=== PATIENT | female | born 1950 | race Caucasian/White ===

== ENCOUNTER 2018-02-07 16:59 | Inpatient (IN) | payer MEDICARE, OTHER ==
[2018-02-07] MEDS ORDERED: Sodium Chloride 0.9% 1,000 ML IV STA (17:21)
--- NOTE | 2018-02-07 17:24 | ED PDOC ---
HPI: Psych/Substance Abuse Time Seen by Provider: 02/07/18 17:15 Chief Complaint (Nursing): Psychiatric Evaluation Chief Complaint (Provider): Psychiatric Evaluation History/Exam Limitations: no limitations Additional Complaint(s): Keke Mena is a 68 year old female with a past medical history of CVA, HTN, diabetes, and chronic kidney disease, who was referred to the emergency department by her [facility]. Patient states she has been experiencing abdominal pain associated with nausea and vomiting. Patient has shown signs of depression but has no suicidal or homicidal ideation. PMD: Thad Conn Past Medical History Reviewed: Historical Data, Nursing Documentation, Vital Signs Vital Signs: Last Vital Signs Temp 98.3 F 02/07/18 17:03 Pulse 104 H 02/07/18 17:03 Resp 16 02/07/18 17:03 BP 133/90 02/07/18 17:03 Pulse Ox 95 02/07/18 17:03 - Medical History PMH: CVA, Diabetes, HTN, Chronic Kidney Disease - Surgical History Surgical History: No Surg Hx - Family History Family History: States: Unknown Family Hx - Living Arrangements Living Arrangements: [facility] L[facility] - Home Medications Home Medications: Ambulatory Orders Medication Instructions Recorded ARIPiprazole [Abilify] 2 mg PO DAILY 02/07/18 Acetaminophen [Tylenol 325mg tab] 650 mg PO Q4 PRN 02/07/18 Acetaminophen [Tylenol 325mg tab] 650 mg PO Q4 PRN 02/07/18 Apixaban [Eliquis] 2.5 mg PO Q12 02/07/18 Atorvastatin [Lipitor] 80 mg PO HS 02/07/18 Canagliflozin [Invokana] 300 mg PO DAILY 02/07/18 Colchicine [Colcrys] 0.6 mg PO DAILY 02/07/18 Cyproheptadine [Periactin] 4 mg PO BID 02/07/18 Docusate [Colace] 300 mg PO HS 02/07/18 Famotidine [Pepcid] 20 mg PO Q12 02/07/18 Lactulose [Generlac] 30 ml PO HS 02/07/18 Megestrol [Megace] 10 ml PO BID 02/07/18 Metoprolol Succinate XL [Toprol XL] 25 mg PO Q12 02/07/18 Mirtazapine [Remeron] 15 mg PO HS 02/07/18 Polyethylene Glycol 3350 [Miralax] 17 gm PO Q48H PRN 02/07/18 Sertraline [Zoloft] 50 mg PO DAILY 02/07/18 amLODIPine [Norvasc] 5 mg PO Q12 02/07/18 hydrALAZINE [Apresoline] 25 mg PO Q12 02/07/18 - Allergies Allergies/Adverse Reactions: Allergies Allergy/AdvReac Type Severity Reaction Status Date / Time Penicillins Allergy RASH Verified 02/07/18 17:07 Review of Systems ROS Statement: Except As Marked, All Systems Reviewed And Found Negative Gastrointestinal: Positive for: Nausea, Vomiting, Abdominal Pain Psych: Positive for: Depression (showing symptoms of depression). Negative for: Suicidal ideation (homicidal ideation) Physical Exam - Reviewed Nursing Documentation Reviewed: Yes Vital Signs Reviewed: Yes - Physical Exam Appears: Positive for: Non-toxic, No Acute Distress Head Exam: Positive for: ATRAUMATIC, NORMOCEPHALIC Skin: Positive for: Normal Color, Warm, Dry Eye Exam: Positive for: Normal appearance, EOMI, PERRL Neck: Positive for: Normal, Painless ROM, Supple Cardiovascular/Chest: Positive for: Regular Rate, Rhythm. Negative for: Murmur Respiratory: Positive for: Normal Breath Sounds. Negative for: Respiratory Distress Gastrointestinal/Abdominal: Positive for: Tenderness (mild epigastric tenderness and RUQ tenderness) Back: Positive for: Normal Inspection. Negative for: L CVA Tenderness, R CVA Tenderness, Vertebral Tenderness Extremity: Positive for: Other (Left upper and lower extremity weakness ) Neurologic/Psych: Positive for: Alert, Oriented (x3). Negative for: Motor/Sensory Deficits - Laboratory Results Result Diagrams: 02/07/18 18:20 02/07/18 19:05 - ECG O2 Sat by Pulse Oximetry: 95 (RA) Pulse Ox Interpretation: Normal Medical Decision Making Medical Decision Making: Initial Time: 17:21 Initial Plan: --EKG --Alcohol Serum --CMP --Lipase --Drug screen, urine --ED urine dipstick --CBC with differential --Chest X-ray --Pepcid 20 mg IVP --Sodium Chloride 1,000 ml --Zofran Inj 4 mg IVP Time: 18:00 Chest X-ray FINDINGS: LUNGS: No active pulmonary disease. PLEURA: No significant pleural effusion identified, no pneumothorax apparent. CARDIOVASCULAR: No atherosclerotic calcification present Normal. OSSEOUS STRUCTURES: No significant abnormalities. VISUALIZED UPPER ABDOMEN: Normal. OTHER FINDINGS: None. IMPRESSION: No active disease. -- Scribe Attestation: Documented by Sergey Echols, acting as a scribe for Howard Samson MD Provider Scribe Attestation: All medical record entries made by the Scribe were at my direction and personally dictated by me. I have reviewed the chart and agree that the record accurately reflects my personal performance of the history, physical exam, medical decision making, and the department course for this patient. I have also personally directed, reviewed, and agree with the discharge instructions and disposition. Disposition - Clinical Impression Clinical Impression: Abdominal pain, CKD (chronic kidney disease) - Patient ED Disposition Is Patient to be Admitted: Yes - Disposition Disposition Time: 21:13 Condition: FAIR Forms: ClaimIt (Chinese) - Pt Status Changed To: Hospital Disposition Of: Observation - POA Present On Arrival: None
--- NOTE | 2018-02-07 18:06 | RAD ---
Date of service: 02/07/2018 HISTORY: Cough. COMPARISON: No prior. FINDINGS: LUNGS: No active pulmonary disease. PLEURA: No significant pleural effusion identified, no pneumothorax apparent. CARDIOVASCULAR: No atherosclerotic calcification present Normal. OSSEOUS STRUCTURES: No significant abnormalities. VISUALIZED UPPER ABDOMEN: Normal. OTHER FINDINGS: None. IMPRESSION: No active disease.
[2018-02-07 18:25] LABS: BASO # 0.1 K/uL (0.0-0.2); BASO % 1.3 % (0.0-2.0); EOS % 0.9 % (0.0-4.0); HEMOGLOBIN 14.4 g/dL (12.0-16.0); LYMPH # 2.3 K/uL (1.0-4.3); LYMPH % 47.7 % (20.0-40.0); MEAN CELL VOLUME 94.7 fl (81.0-99.0); MEAN CORPUSCULAR HEMOGLOBIN 31.2 pg (27.0-31.0); MEAN CORPUSCULAR HGB CONC 32.9 g/dL (33.0-37.0); MEAN PLATELET VOLUME 8.6 fl (7.2-11.7); MONO # 0.5 K/uL (0.0-0.8); MONO % 10.3 % (0.0-10.0); NEUT # 1.9 K/uL (1.8-7.0); NEUT % 39.8 % (50.0-75.0); NRBC % 0.3 % (0.0-0.0); RBC 4.61 Mil/uL (3.80-5.20); RED CELL DISTRIBUTION WIDTH 17.9 % (11.5-14.5); WHITE BLOOD COUNT 4.8 K/uL (4.8-10.8)
[2018-02-07 19:32] LABS: ALB/GLOB RATIO 0.9 (1.0-2.1); ALBUMIN 3.3 g/dL (3.5-5.0); CALCIUM 9.7 mg/dL (8.4-10.2)
[2018-02-08] MEDS: Sodium Chloride 0.9% 1,000 ML IV SCH ×4 (03:00→23:08)
[2018-02-08] MEDS ORDERED: POLYETHYLENE GLYCOL 3350 17 GM/Dose PACKET PO PRN (03:15)
[2018-02-08 06:48] LABS: INR 1.1; PROTHROMBIN TIME 12.4 Seconds (9.8-13.1)
[2018-02-08 06:49] LABS: PARTIAL THROMBOPLASTIN TIME 32.1 Seconds (25.6-37.1)
--- NOTE | 2018-02-08 07:13 | CARD ---
APPROVED REPORT Date of service: 02/07/2018 EKG Measurement Heart [id number] <Conclusion> Sinus tachycardia with premature atrial complexes Left axis deviation Left ventricular hypertrophy with repolarization abnormality Abnormal ECG
--- NOTE | 2018-02-08 08:24 | CP.PCM.HP ---
<Cyrus Farr - Last Filed: 02/08/18 11:44> History of Present Illness - History of Present Illness History of Present Illness: 68 year old female with a past medical history of CVA, HTN, diabetes, and chronic kidney disease, who was referred to the emergency department by her care home due to abdominal pain associated with nausea and vomiting x1 day. Patient has shown signs of depression but has no suicidal or homicidal ideation. Patient is nonverbal and poor coopeartive with exam. Patient looks comfortable in bed. PMD: Thad Thayer PMH: CVA, Diabetes, HTN, Chronic Kidney Disease PSH: none Meds: as bellow FMH: noncontributory Allergies: PCN SH: no alcohol, tobacco, drugs, live in care home Present on Admission - Present on Admission Any Indicators Present on Admission: No Review of Systems - Review of Systems All systems: reviewed and no additional remarkable complaints except (HPI) Past Patient History - Past Medical History & Family History Past Medical History?: Yes - Past Social History Smoking Status: Never Smoked - CARDIAC Hx Cardiac Disorders: Yes Hx Hypertension: Yes - PULMONARY Hx Respiratory Disorders: No - NEUROLOGICAL Hx Neurological Disorder: Yes HX Cerebrovascular Accident: Yes (left hemiphlegia) - HEENT Hx HEENT Problems: No - RENAL Hx Chronic Kidney Disease: Yes - ENDOCRINE/METABOLIC Hx Endocrine Disorders: Yes Hx Diabetes Mellitus Type 2: Yes - HEMATOLOGICAL/ONCOLOGICAL Hx Blood Disorders: No Hx AIDS: No Hx Human Immunodeficiency Virus (HIV): No - INTEGUMENTARY Hx Dermatological Problems: Yes Other/Comment: healed 2 left buttocks - MUSCULOSKELETAL/RHEUMATOLOGICAL Hx Musculoskeletal Disorders: Yes Hx Falls: Yes - GASTROINTESTINAL Hx Gastrointestinal Disorders: No - GENITOURINARY/GYNECOLOGICAL Hx Genitourinary Disorders: No - PSYCHIATRIC Hx Psychophysiologic Disorder: Yes Hx Depression: Yes Hx Substance Use: No - SURGICAL HISTORY Hx Surgeries: No - ANESTHESIA Hx Anesthesia: No Hx Anesthesia Reactions: No Hx Malignant Hyperthermia: No Has any member of the family had a problem w/ anesthesia?: No Meds Allergies/Adverse Reactions: Allergies Allergy/AdvReac Type Severity Reaction Status Date / Time Penicillins Allergy RASH Verified 02/07/18 17:07 Physical Exam - Constitutional Appears: No Acute Distress, Chronically Ill - Head Exam Head Exam: NORMAL INSPECTION - Eye Exam Eye Exam: EOMI - Respiratory Exam Respiratory Exam: Clear to Auscultation Bilateral - Cardiovascular Exam Cardiovascular Exam: REGULAR RHYTHM, +S1, +S2 - GI/Abdominal Exam GI & Abdominal Exam: Soft, Tenderness (diffuse). absent: Distended - Extremities Exam Extremities exam: Negative for: pedal edema - Neurological Exam Neurological exam: Alert, Oriented x3 - Psychiatric Exam Psychiatric exam: Flat Affect - Skin Skin Exam: Dry, Warm Results - Vital Signs Recent Vital Signs: Last Vital Signs Temp 97.6 F 02/08/18 08:03 Pulse 92 H 02/08/18 08:03 Resp 20 02/08/18 08:03 BP 126/91 H 02/08/18 08:03 Pulse Ox 99 02/08/18 08:03 - Labs Result Diagrams: 02/07/18 18:20 02/07/18 19:05 Labs: Laboratory Results - last 24 hr 02/07/18 02/07/18 02/07/18 18:20 18:42 19:05 WBC 4.8 RBC 4.61 Hgb 14.4 Hct 43.6 MCV 94.7 MCH 31.2 H MCHC 32.9 L RDW 17.9 H Plt Count 329 MPV 8.6 Neut % (Auto) 39.8 L Lymph % (Auto) 47.7 H [place] % (Auto) 10.3 H Eos % (Auto) 0.9 Baso % (Auto) 1.3 Neut # (Auto) 1.9 Lymph # (Auto) 2.3 [place] # (Auto) 0.5 Eos # (Auto) 0.0 Baso # (Auto) 0.1 PT INR APTT Sodium 138 Potassium 3.7 Chloride 105 Carbon Dioxide 19 L Anion Gap 18 BUN 64 H Creatinine 2.7 H Est GFR ( Amer) 21 Est GFR (Non-Af Amer) 18 POC Glucose (mg/dL) 190 H Random Glucose 202 H Calcium 9.7 Total Bilirubin 0.6 AST 42 H ALT 22 Alkaline Phosphatase 129 H Total Protein 6.9 Albumin 3.3 L Globulin 3.5 Albumin/Globulin Ratio 0.9 L Lipase 641 H 02/08/18 02/08/18 05:40 06:05 WBC RBC Hgb Hct MCV MCH MCHC RDW Plt Count MPV Neut % (Auto) Lymph % (Auto) [place] % (Auto) Eos % (Auto) Baso % (Auto) Neut # (Auto) Lymph # (Auto) [place] # (Auto) Eos # (Auto) Baso # (Auto) PT 12.4 INR 1.1 APTT 32.1 Sodium Potassium Chloride Carbon Dioxide Anion Gap BUN Creatinine Est GFR ( Amer) Est GFR (Non-Af Amer) POC Glucose (mg/dL) 138 H Random Glucose Calcium Total Bilirubin AST ALT Alkaline Phosphatase Total Protein Albumin Globulin Albumin/Globulin Ratio Lipase Assessment & Plan - Assessment and Plan (Free Text) Assessment: 68 year old female with a past medical history of CVA, HTN, diabetes, and chronic kidney disease due to abdominal pain and depression. Plan: - stable, denies chest pain - labs reviewed - CXR negative for lung disease - Abd Ct official report pending - f/u esophagus xr - GI consulted for PEG placement, appreciated input - continue home meds - Psych consulted, input appreciated - rest of plan as ordered case seen ans examined with Dr Conn <Thad Conn - Last Filed: 02/10/18 08:17> Results - Vital Signs Recent Vital Signs: Last Vital Signs Temp 97.7 F 02/09/18 16:00 Pulse 75 02/09/18 22:24 Resp 18 02/09/18 16:00 BP 132/74 02/09/18 22:24 Pulse Ox 96 02/09/18 16:00 - Labs Result Diagrams: 02/09/18 06:15 02/10/18 05:30 Labs: Laboratory Results - last 24 hr 02/09/18 02/09/18 02/09/18 11:02 15:58 20:42 Sodium Potassium Chloride Carbon Dioxide Anion Gap BUN Creatinine Est GFR ( Amer) Est GFR (Non-Af Amer) POC Glucose (mg/dL) 135 H 124 H Random Glucose Calcium Total Bilirubin AST ALT Alkaline Phosphatase Total Protein Albumin Globulin Albumin/Globulin Ratio Urine Color Yellow Urine Clarity Cloudy Urine pH 5.0 Ur Specific [place] 1.010 Urine Protein Negative Urine Glucose (UA) >=500 Urine Ketones Trace Urine Blood Small Urine Nitrate Negative Urine Bilirubin Negative Urine Urobilinogen 0.2-1.0 Ur Leukocyte Esterase Large Urine RBC (Auto) 13 H Urine Microscopic WBC 30 H Ur Squamous Epith Cells 2 Urine Bacteria Many H Urine Yeast (Budding) Few H 02/09/18 02/10/18 21:35 05:30 Sodium 141 Potassium 3.3 L Chloride 118 H Carbon Dioxide 14 L Anion Gap 12 BUN 35 H Creatinine 1.4 H Est GFR ( Amer) 46 Est GFR (Non-Af Amer) 38 POC Glucose (mg/dL) 166 H Random Glucose 99 Calcium 8.4 Total Bilirubin 0.5 AST 27 ALT 19 Alkaline Phosphatase 80 Total Protein 5.5 L Albumin 2.5 L D Globulin 3.0 Albumin/Globulin Ratio 0.8 L Urine Color Urine Clarity Urine pH Ur Specific [place] Urine Protein Urine Glucose (UA) Urine Ketones Urine Blood Urine Nitrate Urine Bilirubin Urine Urobilinogen Ur Leukocyte Esterase Urine RBC (Auto) Urine Microscopic WBC Ur Squamous Epith Cells Urine Bacteria Urine Yeast (Budding) Assessment & Plan - Assessment and Plan (Free Text) Assessment: Patient was personally seen and examined by me in rounds with residents. Available labs and diagnostic data reviewed. Case, Patient's condition and management plan discussed with residents in rounds. Agree with resident's progress note. Plan: As ordered.
[2018-02-08] MEDS: Megestrol Acetate 40 mg/ml Cup PO SCH ×2 (09:14→17:23)
[2018-02-08] MEDS: Metoprolol Succinate 25 mg XL Tab PO SCH ×3 (09:18→23:07)
[2018-02-08] MEDS ORDERED: Barium Sulfate Susp 0.1% w/v, 0.1% w/w 450 mL Bottle PO ONE (10:52)
--- NOTE | 2018-02-08 11:42 | CP.PCM.CON ---
<Florence Fonseca - Last Filed: 02/08/18 11:34> History of Present Illness - History of Present Illness History of Present Illness: GI Fellow PGY5 Consult Note This is a 68 year old female with a past medical history of CVA, HTN, diabetes, and chronic kidney disease, who was referred to the emergency department by her [facility] for poor appetite. Patient stated in the ER she has bee n experiencing abdominal pain associated with nausea and vomiting. Patient has shown signs of depression. No other records or further workup was sent from [place]. GI was consulted for PEG placement. ROS: A 12pt ROS was unable to be obtained. PMHx: As stated in HPI PsHx: Denies SHx: Denies FHx: Denies Past Patient History - Past Medical History & Family History Past Medical History?: Yes - Past Social History Smoking Status: Never Smoked - CARDIAC Hx Cardiac Disorders: Yes Hx Hypertension: Yes - PULMONARY Hx Respiratory Disorders: No - NEUROLOGICAL Hx Neurological Disorder: Yes HX Cerebrovascular Accident: Yes (left hemiphlegia) - HEENT Hx HEENT Problems: No - RENAL Hx Chronic Kidney Disease: Yes - ENDOCRINE/METABOLIC Hx Endocrine Disorders: Yes Hx Diabetes Mellitus Type 2: Yes - HEMATOLOGICAL/ONCOLOGICAL Hx Blood Disorders: No Hx AIDS: No Hx Human Immunodeficiency Virus (HIV): No - INTEGUMENTARY Hx Dermatological Problems: Yes Other/Comment: healed 2 left buttocks - MUSCULOSKELETAL/RHEUMATOLOGICAL Hx Musculoskeletal Disorders: Yes Hx Falls: Yes - GASTROINTESTINAL Hx Gastrointestinal Disorders: No - GENITOURINARY/GYNECOLOGICAL Hx Genitourinary Disorders: No - PSYCHIATRIC Hx Psychophysiologic Disorder: Yes Hx Depression: Yes Hx Substance Use: No - SURGICAL HISTORY Hx Surgeries: No - ANESTHESIA Hx Anesthesia: No Hx Anesthesia Reactions: No Hx Malignant Hyperthermia: No Has any member of the family had a problem w/ anesthesia?: No Meds Allergies/Adverse Reactions: Allergies Allergy/AdvReac Type Severity Reaction Status Date / Time Penicillins Allergy RASH Verified 02/07/18 17:07 - Medications Medications: Current Medications Acetaminophen (Tylenol 325mg Tab) 650 mg PO Q4 PRN PRN Reason: Temp >100 Acetaminophen (Tylenol 325mg Tab) 650 mg PO Q4 PRN PRN Reason: Pain, Mild (1-3) Amlodipine Besylate (Norvasc) 5 mg PO Q12 [facility] Last Admin: 02/08/18 09:17 Dose: 5 mg Aripiprazole (Abilify) 2 mg PO DAILY [facility] Last Admin: 02/08/18 09:13 Dose: Not Given Atorvastatin Calcium (Lipitor) 80 mg PO HS [facility] Colchicine (Colocrys) 0.6 mg PO DAILY [facility] Last Admin: 02/08/18 09:14 Dose: Not Given Cyproheptadine HCl (Periactin) 4 mg PO BID [facility] Last Admin: 02/08/18 09:14 Dose: Not Given Docusate Sodium (Colace) 300 mg PO HS [facility] Famotidine (Pepcid) 20 mg PO Q12 [facility] Last Admin: 02/08/18 09:14 Dose: Not Given Heparin Sodium (Porcine) (Heparin) 5,000 units SC Q8 [facility]; Protocol Last Admin: 02/08/18 09:11 Dose: 5,000 units Hydralazine HCl (Apresoline) 25 mg PO Q12 [facility] Last Admin: 02/08/18 09:13 Dose: Not Given Sodium Chloride (Sodium Chloride 0.9%) 1,000 mls @ 100 mls/hr IV .Q10H [facility] Stop: 02/13/18 03:10 Last Admin: 02/08/18 05:27 Dose: 100 mls/hr Megestrol Acetate (Megace) 400 mg PO BID [facility] Last Admin: 02/08/18 09:14 Dose: Not Given Metoprolol Succinate (Toprol Xl) 25 mg PO Q12 [facility] Last Admin: 02/08/18 09:18 Dose: 25 mg Mirtazapine (Remeron) 15 mg PO [facility] Polyethylene Glycol (Miralax) 17 gm PO Q48H PRN PRN Reason: Constipation Sertraline HCl (Zoloft) 50 mg PO DAILY [facility] Last Admin: 02/08/18 09:18 Dose: Not Given Physical Exam - Constitutional Appears: Non-toxic, No Acute Distress - Head Exam Head Exam: ATRAUMATIC, NORMAL INSPECTION, NORMOCEPHALIC - Eye Exam Eye Exam: EOMI, Normal appearance, PERRL Pupil Exam: PERRL - ENT Exam ENT Exam: Mucous Membranes Dry - Respiratory Exam Respiratory Exam: Clear to Auscultation Bilateral, NORMAL BREATHING PATTERN - Cardiovascular Exam Cardiovascular Exam: RRR, +S1, +S2 - GI/Abdominal Exam GI & Abdominal Exam: Normal Bowel Sounds, Soft. absent: Distended, Organomegaly, Tenderness - Extremities Exam Extremities exam: Positive for: normal inspection - Neurological Exam Neurological exam: Alert - Psychiatric Exam Psychiatric exam: Depressed - Skin Skin Exam: Dry, Intact, Normal Color, Warm Results - Vital Signs Recent Vital Signs: Last Vital Signs Temp 97.6 F 02/08/18 08:03 Pulse 92 H 02/08/18 09:18 Resp 20 02/08/18 08:03 BP 126/91 H 02/08/18 09:18 Pulse Ox 99 02/08/18 08:03 - Labs Result Diagrams: 02/07/18 18:20 02/07/18 19:05 Labs: Laboratory Results - last 24 hr 02/07/18 02/07/18 02/07/18 18:20 18:42 19:05 WBC 4.8 RBC 4.61 Hgb 14.4 Hct 43.6 MCV 94.7 MCH 31.2 H MCHC 32.9 L RDW 17.9 H Plt Count 329 MPV 8.6 Neut % (Auto) 39.8 L Lymph % (Auto) 47.7 H [place] % (Auto) 10.3 H Eos % (Auto) 0.9 Baso % (Auto) 1.3 Neut # (Auto) 1.9 Lymph # (Auto) 2.3 [place] # (Auto) 0.5 Eos # (Auto) 0.0 Baso # (Auto) 0.1 PT INR APTT Sodium 138 Potassium 3.7 Chloride 105 Carbon Dioxide 19 L Anion Gap 18 BUN 64 H Creatinine 2.7 H Est GFR ( Amer) 21 Est GFR (Non-Af Amer) 18 POC Glucose (mg/dL) 190 H Random Glucose 202 H Calcium 9.7 Total Bilirubin 0.6 AST 42 H ALT 22 Alkaline Phosphatase 129 H Total Protein 6.9 Albumin 3.3 L Globulin 3.5 Albumin/Globulin Ratio 0.9 L Lipase 641 H 02/08/18 02/08/18 05:40 06:05 WBC RBC Hgb Hct MCV MCH MCHC RDW Plt Count MPV Neut % (Auto) Lymph % (Auto) [place] % (Auto) Eos % (Auto) Baso % (Auto) Neut # (Auto) Lymph # (Auto) [place] # (Auto) Eos # (Auto) Baso # (Auto) PT 12.4 INR 1.1 APTT 32.1 Sodium Potassium Chloride Carbon Dioxide Anion Gap BUN Creatinine Est GFR ( Amer) Est GFR (Non-Af Amer) POC Glucose (mg/dL) 138 H Random Glucose Calcium Total Bilirubin AST ALT Alkaline Phosphatase Total Protein Albumin Globulin Albumin/Globulin Ratio Lipase Assessment & Plan - Assessment and Plan (Free Text) Assessment: 1. Poor Appetite 2. r/o Dysphagia 3. r/o Gallbladder pathology 4. Hx of CVA 5. Depression? Plan: -Continue supportive care with pain control and anti-emetics -CT imaging without contrast reviewed, concern for possible porcelain gallbladder -Will order Abd US, if +porcelain gallbladder will need surgical cholecystectomy -This may explain her abdominal pain and poor appetite -Unable to order MRI with contrast due to CrCl<30 -Monitor LFTs -Will order swallow evaluation -Order Barium esophagram to r/o any pathology prior to considering PEG -Pt looks depressed may benefit from psych evaluation -Will continue to follow <Keegan Zamudio - Last Filed: 02/15/18 09:08> Meds - Medications Medications: Current Medications Acetaminophen (Tylenol 325mg Tab) 650 mg PO Q4 PRN PRN Reason: Temp >100 Last Admin: 02/09/18 08:32 Dose: 650 mg Acetaminophen (Tylenol 325mg Tab) 650 mg PO Q4 PRN PRN Reason: Pain, Mild (1-3) Amlodipine Besylate (Norvasc) 5 mg PO Q12 [facility] Last Admin: 02/14/18 21:54 Dose: 5 mg Aripiprazole (Abilify) 5 mg PO DAILY [facility] Last Admin: 02/14/18 09:38 Dose: 5 mg Atorvastatin Calcium (Lipitor) 80 mg PO HS [facility] Last Admin: 02/14/18 21:53 Dose: 80 mg Bismuth Subsalicylate (Pepto-Bismol) 524 mg PO Q3H PRN PRN Reason: Diarrhea Last Admin: 02/13/18 21:38 Dose: 524 mg Colchicine (Colocrys) 0.6 mg PO DAILY [facility] Last Admin: 02/14/18 09:35 Dose: 0.6 mg Cyproheptadine HCl (Periactin) 4 mg PO BID [facility] Last Admin: 02/14/18 17:44 Dose: 4 mg Enalaprilat (Vasotec Iv) 1.25 mg IV Q6 PRN PRN Reason: Hypertension Last Admin: 02/12/18 22:11 Dose: 1.25 mg Heparin Sodium (Porcine) (Heparin) 5,000 units SC Q8 [facility]; Protocol Last Admin: 02/15/18 06:00 Dose: Not Given Hydralazine HCl (Apresoline) 25 mg PO Q12 [facility] Last Admin: 02/14/18 21:54 Dose: 25 mg Megestrol Acetate (Megace) 400 mg PO BID [facility] Last Admin: 02/14/18 17:44 Dose: 400 mg Metoprolol Succinate (Toprol Xl) 50 mg PO Q12 [facility] Last Admin: 02/14/18 22:21 Dose: 50 mg Mirtazapine (Remeron) 15 mg PO HS [facility] Last Admin: 02/14/18 21:55 Dose: 15 mg Ondansetron HCl (Zofran Inj) 4 mg IVP Q6 PRN PRN Reason: Nausea/Vomiting Last Admin: 02/15/18 06:04 Dose: 4 mg Pantoprazole Sodium (Protonix Inj) 40 mg IVP DAILY [facility] Last Admin: 02/14/18 09:42 Dose: 40 mg Potassium Chloride (Potassium Chloride Oral Soln) 40 meq PO DAILY [facility] Last Admin: 02/14/18 09:40 Dose: 40 meq Sertraline HCl (Zoloft) 50 mg PO DAILY [facility] Last Admin: 02/14/18 09:39 Dose: 50 mg Results - Vital Signs Recent Vital Signs: Last Vital Signs Temp 97.1 F L 02/15/18 08:30 Pulse 86 02/15/18 08:30 Resp 20 02/15/18 08:30 BP 110/75 02/15/18 08:30 Pulse Ox 99 02/15/18 08:30 - Labs Result Diagrams: 02/14/18 06:40 02/14/18 06:40 Labs: Laboratory Results - last 24 hr 02/14/18 02/14/18 02/14/18 11:03 15:53 21:11 POC Glucose (mg/dL) 242 H 304 H 259 H 02/15/18 06:01 POC Glucose (mg/dL) 270 H Assessment & Plan - Assessment and Plan (Free Text) Plan: Patient seen and examined Discussed with fellow and agree with above Keegan Zamudio MD, PhD
--- NOTE | 2018-02-08 12:23 | CT ---
Date of service: 02/07/2018 PROCEDURE: CT Abdomen and Pelvis without intravenous contrast HISTORY: r/o kidney stone COMPARISON: None. TECHNIQUE: Unenhanced. Neither IV nor oral contrast administered Radiation dose: Total exam DLP = 600.14 mGy-cm. This CT exam was performed using one or more of the following dose reduction techniques: Automated exposure control, adjustment of the mA and/or kV according to patient size, and/or use of iterative reconstruction technique. FINDINGS: LOWER THORAX: Unremarkable. LIVER: Unremarkable. No gross lesion or ductal dilatation. GALLBLADDER AND BILE DUCTS: Distended gallbladder. Sludge likely. Small gallstones. PANCREAS: Unremarkable. No gross lesion or ductal dilatation. SPLEEN: Unremarkable. ADRENALS: Unremarkable. No mass. KIDNEYS AND URETERS: Mildly atrophic kidneys bilaterally. Otherwise unremarkable. Unremarkable. No hydronephrosis. No solid mass. VASCULATURE: Atherosclerotic calcification and mural plaque present. Findings are seen throughout the aorta . No aortic aneurysm. BOWEL: Unremarkable. No obstruction. No gross mural thickening. APPENDIX: Unremarkable. Normal appendix. PERITONEUM: Unremarkable. No free fluid. No free air. LYMPH NODES: Unremarkable. No enlarged lymph nodes. BLADDER: Unremarkable. REPRODUCTIVE: Unremarkable. BONES: No acute fracture. OTHER FINDINGS: None. IMPRESSION: Distended gallbladder containing sludge and either small stones or a partially calcified gallbladder wall. Ultrasound correlation advised if clinically appropriate.. Additional benign and/or incidental findings described above. Concordant results (preliminary interpretation) provided by [employer]. Procedure Completed: 20:48. Preliminary Report: Dictated and Authenticated: 21:33. Final Interpretation: 12:19. February 08, 2018
--- NOTE | 2018-02-08 12:38 | CP.PCM.CON ---
History of Present Illness - History of Present Illness History of Present Illness: consult requested for depression pt is a 68 year old female with a past medical history of CVA, HTN, diabetes, and chronic kidney disease, who was referred to the emergency department by her [facility] assisted for poor appetite. as per record, pt has been experiencing abdominal pain associated with nausea and vomiting. GI was consulted for PEG placement. and abdominal x ray and ultra sound have been requested On evaluation, pt presenting with marked depression, dysphoric and melancholic face, poor eye contact, speech extremely under productive pt mainly responds by nodding her head, when asked if she is depressed pt nodded her head yes, when asked if she was hospitalized in psychiatric hospital before, pt nodded her head yes,pt became tearful , yet nodded her head denying any current suicidal thoughts or intents, denied any current perceptual disturbances, very uncooperative with rest of interview and requesting to drink water Past Patient History - Past Medical History & Family History Past Medical History?: Yes - Past Social History Smoking Status: Never Smoked - CARDIAC Hx Cardiac Disorders: Yes Hx Hypertension: Yes - PULMONARY Hx Respiratory Disorders: No - NEUROLOGICAL Hx Neurological Disorder: Yes HX Cerebrovascular Accident: Yes (left hemiphlegia) - HEENT Hx HEENT Problems: No - RENAL Hx Chronic Kidney Disease: Yes - ENDOCRINE/METABOLIC Hx Endocrine Disorders: Yes Hx Diabetes Mellitus Type 2: Yes - HEMATOLOGICAL/ONCOLOGICAL Hx Blood Disorders: No Hx AIDS: No Hx Human Immunodeficiency Virus (HIV): No - INTEGUMENTARY Hx Dermatological Problems: Yes Other/Comment: healed 2 left buttocks - MUSCULOSKELETAL/RHEUMATOLOGICAL Hx Musculoskeletal Disorders: Yes Hx Falls: Yes - GASTROINTESTINAL Hx Gastrointestinal Disorders: No - GENITOURINARY/GYNECOLOGICAL Hx Genitourinary Disorders: No - PSYCHIATRIC Hx Psychophysiologic Disorder: Yes Hx Depression: Yes Hx Substance Use: No - SURGICAL HISTORY Hx Surgeries: No - ANESTHESIA Hx Anesthesia: No Hx Anesthesia Reactions: No Hx Malignant Hyperthermia: No Has any member of the family had a problem w/ anesthesia?: No Meds Allergies/Adverse Reactions: Allergies Allergy/AdvReac Type Severity Reaction Status Date / Time Penicillins Allergy RASH Verified 02/07/18 17:07 - Medications Medications: Current Medications Acetaminophen (Tylenol 325mg Tab) 650 mg PO Q4 PRN PRN Reason: Temp >100 Acetaminophen (Tylenol 325mg Tab) 650 mg PO Q4 PRN PRN Reason: Pain, Mild (1-3) Amlodipine Besylate (Norvasc) 5 mg PO Q12 [facility] Last Admin: 02/08/18 09:17 Dose: 5 mg Aripiprazole (Abilify) 2 mg PO DAILY [facility] Last Admin: 02/08/18 09:13 Dose: Not Given Atorvastatin Calcium (Lipitor) 80 mg PO HS [facility] Colchicine (Colocrys) 0.6 mg PO DAILY [facility] Last Admin: 02/08/18 09:14 Dose: Not Given Cyproheptadine HCl (Periactin) 4 mg PO BID [facility] Last Admin: 02/08/18 09:14 Dose: Not Given Docusate Sodium (Colace) 300 mg PO HS [facility] Famotidine (Pepcid) 20 mg PO Q12 [facility] Last Admin: 02/08/18 09:14 Dose: Not Given Heparin Sodium (Porcine) (Heparin) 5,000 units SC Q8 [facility]; Protocol Last Admin: 02/08/18 09:11 Dose: 5,000 units Hydralazine HCl (Apresoline) 25 mg PO Q12 [facility] Last Admin: 02/08/18 09:13 Dose: Not Given Sodium Chloride (Sodium Chloride 0.9%) 1,000 mls @ 100 mls/hr IV .Q10H [facility] Stop: 02/13/18 03:10 Last Admin: 02/08/18 05:27 Dose: 100 mls/hr Megestrol Acetate (Megace) 400 mg PO BID [facility] Last Admin: 02/08/18 09:14 Dose: Not Given Metoprolol Succinate (Toprol Xl) 25 mg PO Q12 [facility] Last Admin: 02/08/18 09:18 Dose: 25 mg Mirtazapine (Remeron) 15 mg PO HS [facility] Polyethylene Glycol (Miralax) 17 gm PO Q48H PRN PRN Reason: Constipation Sertraline HCl (Zoloft) 50 mg PO DAILY [facility] Last Admin: 02/08/18 09:18 Dose: Not Given Physical Exam - Psychiatric Exam Additional comments: pt seen in bed , marked psychomotor retardation, extremely under productive speech , depressed mood and affect, denied suicidal or homicidal ideation, denied perceptual disturbances, , oriented to person, unable to further assess mental status as pt is uncooperative Results - Vital Signs Recent Vital Signs: Last Vital Signs Temp 97.6 F 02/08/18 08:03 Pulse 92 H 02/08/18 09:18 Resp 20 02/08/18 08:03 BP 126/91 H 02/08/18 09:18 Pulse Ox 99 02/08/18 08:03 - Labs Result Diagrams: 02/07/18 18:20 02/07/18 19:05 Labs: Laboratory Results - last 24 hr 02/07/18 02/07/18 02/07/18 18:20 18:42 19:05 WBC 4.8 RBC 4.61 Hgb 14.4 Hct 43.6 MCV 94.7 MCH 31.2 H MCHC 32.9 L RDW 17.9 H Plt Count 329 MPV 8.6 Neut % (Auto) 39.8 L Lymph % (Auto) 47.7 H [place] % (Auto) 10.3 H Eos % (Auto) 0.9 Baso % (Auto) 1.3 Neut # (Auto) 1.9 Lymph # (Auto) 2.3 [place] # (Auto) 0.5 Eos # (Auto) 0.0 Baso # (Auto) 0.1 PT INR APTT Sodium 138 Potassium 3.7 Chloride 105 Carbon Dioxide 19 L Anion Gap 18 BUN 64 H Creatinine 2.7 H Est GFR ( Amer) 21 Est GFR (Non-Af Amer) 18 POC Glucose (mg/dL) 190 H Random Glucose 202 H Calcium 9.7 Total Bilirubin 0.6 AST 42 H ALT 22 Alkaline Phosphatase 129 H Total Protein 6.9 Albumin 3.3 L Globulin 3.5 Albumin/Globulin Ratio 0.9 L Lipase 641 H 02/08/18 02/08/18 05:40 06:05 WBC RBC Hgb Hct MCV MCH MCHC RDW Plt Count MPV Neut % (Auto) Lymph % (Auto) [place] % (Auto) Eos % (Auto) Baso % (Auto) Neut # (Auto) Lymph # (Auto) [place] # (Auto) Eos # (Auto) Baso # (Auto) PT 12.4 INR 1.1 APTT 32.1 Sodium Potassium Chloride Carbon Dioxide Anion Gap BUN Creatinine Est GFR ( Amer) Est GFR (Non-Af Amer) POC Glucose (mg/dL) 138 H Random Glucose Calcium Total Bilirubin AST ALT Alkaline Phosphatase Total Protein Albumin Globulin Albumin/Globulin Ratio Lipase Assessment & Plan - Assessment and Plan (Free Text) Assessment: major depression Plan: recommend to continue with zoloft and remeron recommend to increase abilify to 5mg daily pt severely depressed and would benefit from transfer to psychiatry upon medical clearance
--- NOTE | 2018-02-08 13:24 | RAD ---
Date of service: 02/08/2018 HISTORY: Dysphagia. COMPARISON: None. TECHNIQUE: An esophagram was performed using low density technique. FINDINGS: Patient tolerated procedure well. 11.104 mGy total radiation exposure was recorded in 1.6 min of fluoroscopy time. ESOPHAGUS: Evaluation of the esophagus is limited due to limited ability of the patient to ingest oral contrast material. The patient was unable to swallow small mouthfuls of barium at a time. The esophagus appears patent without obstruction to the flow of oral contrast material although tertiary contractions were identified the latter phase of swallowing resulting in limited esophagogram esophageal reflux. No prominent gastroesophageal reflux however the patient was unable to swallow adequate overall volume of oral contrast material. No extravasation oral contrast was identified. No definite hiatal hernia appreciable. OTHER FINDINGS: None. IMPRESSION: Limited esophagram due to inability of patient to swell adequate continuous volumes of oral contrast material and adequate overall volume of contrast. Limited esophageal esophageal reflux was identified with tertiary contractions identified at the latter phase of swallowing. No suspicious filling defect or contrast collection was encountered. No definitive gastroesophageal reflux.
--- NOTE | 2018-02-08 15:35 | US ---
Date of service: 02/08/2018 HISTORY: porcelain gallbladder on CT? COMPARISON: February 07, 2018. CT abdomen and pelvis TECHNIQUE: Sonographic evaluation of the abdomen. FINDINGS: LIVER: Measures 13.1 cm. Patent portal vein. Portal venous flow: Hepatopetal. Unremarkable echogenicity of the liver parenchyma. No mass. No intrahepatic bile duct dilatation. GALLBLADDER: Distended gallbladder containing sludge. Cholelithiasis. Negative study for gallbladder wall thickening, pericholecystic fluid, sonographic Maruo's sign. COMMON BILE DUCT: Measures 7.0 mm. No stones. No dilatation. PANCREAS: Unremarkable as visualized. No mass. No ductal dilatation. RIGHT KIDNEY: Measures 0.2 x 9.8cm. Normal echogenicity. No calculus, mass, or hydronephrosis. LEFT KIDNEY: Measures 0.3 x 9.6cm. Normal echogenicity. No calculus, mass, or hydronephrosis. SPLEEN: Normal in size and contour. No mass. AORTA: No aneurysmal dilatation. IVC: Unremarkable. OTHER FINDINGS: None. IMPRESSION: Distended gallbladder containing sludge and gallstones. No sonographic findings to suggest acute cholecystitis.
[2018-02-09 06:34] LABS: HEMOGLOBIN 13.1 g/dL (12.0-16.0); MEAN CORPUSCULAR HEMOGLOBIN 31.6 pg (27.0-31.0); MEAN CORPUSCULAR HGB CONC 32.6 g/dL (33.0-37.0); RBC 4.14 Mil/uL (3.80-5.20); WHITE BLOOD COUNT 4.8 K/uL (4.8-10.8)
[2018-02-09 06:43] LABS: ALB/GLOB RATIO 0.9 (1.0-2.1); ALBUMIN 3.2 g/dL (3.5-5.0); CALCIUM 9.3 mg/dL (8.4-10.2)
--- NOTE | 2018-02-09 07:44 | CP.PCM.PN ---
<Cyrus Farr - Last Filed: 02/09/18 09:18> Subjective - Date & Time of Evaluation Date of Evaluation: 02/09/18 Time of Evaluation: 07:42 - Subjective Subjective: Patient seen ad examined this morning with Dr Conn, mild abdominal pain, decreased appetite, as per nurse patient able to swallow pills. Objective - Vital Signs/Intake and Output Vital Signs (last 24 hours): Temp Pulse Resp BP Pulse Ox 97.8 F 81 18 146/94 H 99 02/08/18 23:46 02/08/18 23:46 02/08/18 23:46 02/08/18 23:46 02/08/18 23:46 - Medications Medications: Current Medications Acetaminophen (Tylenol 325mg Tab) 650 mg PO Q4 PRN PRN Reason: Temp >100 Acetaminophen (Tylenol 325mg Tab) 650 mg PO Q4 PRN PRN Reason: Pain, Mild (1-3) Amlodipine Besylate (Norvasc) 5 mg PO Q12 [facility] Last Admin: 02/08/18 21:48 Dose: Not Given Aripiprazole (Abilify) 5 mg PO DAILY [facility] Atorvastatin Calcium (Lipitor) 80 mg PO HS [facility] Last Admin: 02/08/18 23:09 Dose: 80 mg Colchicine (Colocrys) 0.6 mg PO DAILY [facility] Last Admin: 02/08/18 09:14 Dose: Not Given Cyproheptadine HCl (Periactin) 4 mg PO BID [facility] Last Admin: 02/08/18 17:23 Dose: Not Given Docusate Sodium (Colace) 300 mg PO HS [facility] Last Admin: 02/08/18 23:09 Dose: Not Given Heparin Sodium (Porcine) (Heparin) 5,000 units SC Q8 [facility]; Protocol Last Admin: 02/09/18 01:14 Dose: 5,000 units Hydralazine HCl (Apresoline) 25 mg PO Q12 [facility] Last Admin: 02/08/18 22:59 Dose: 25 mg Sodium Chloride (Sodium Chloride 0.9%) 1,000 mls @ 100 mls/hr IV .Q10H [facility] Stop: 02/13/18 03:10 Last Admin: 02/08/18 23:08 Dose: Not Given Megestrol Acetate (Megace) 400 mg PO BID [facility] Last Admin: 02/08/18 17:23 Dose: Not Given Metoprolol Succinate (Toprol Xl) 25 mg PO Q12 [facility] Last Admin: 02/08/18 23:07 Dose: 25 mg Mirtazapine (Remeron) 15 mg PO HS [facility] Last Admin: 02/08/18 23:08 Dose: 15 mg Pantoprazole Sodium (Protonix Inj) 40 mg IVP DAILY [facility] Last Admin: 02/08/18 22:47 Dose: 40 mg Polyethylene Glycol (Miralax) 17 gm PO Q48H PRN PRN Reason: Constipation Sertraline HCl (Zoloft) 50 mg PO DAILY [facility] Last Admin: 02/08/18 09:18 Dose: Not Given - Labs Labs: 02/09/18 06:15 02/09/18 06:15 PT 12.4 Seconds (9.8-13.1) 02/08/18 06:05 INR 1.1 02/08/18 06:05 APTT 32.1 Seconds (25.6-37.1) 02/08/18 06:05 - Constitutional Appears: No Acute Distress, Chronically Ill - Head Exam Head Exam: NORMAL INSPECTION - Eye Exam Eye Exam: EOMI - Respiratory Exam Respiratory Exam: Clear to Ausculation Bilateral - Cardiovascular Exam Cardiovascular Exam: REGULAR RHYTHM, +S1, +S2 - GI/Abdominal Exam GI & Abdominal Exam: Soft, Tenderness (mild diffuse). absent: Distended, Guarding - Extremities Exam Extremities Exam: absent: Calf Tenderness - Neurological Exam Neurological Exam: Alert, Oriented x3 Additional comments: no cooperative - Skin Skin Exam: Dry, Warm Assessment and Plan - Assessment and Plan (Free Text) Assessment: 68 year old female with a past medical history of CVA, HTN, diabetes, and chronic kidney disease due to abdominal pain and depression/SI. Plan: - VSS stable, denies chest pain - labs reviewed - Abd US: neg porcelain gallbladder, +distended gallbladder with sludge and gallstones. - Surgery consulted, input appreciated - Barium esophagram poor intake of contrast but no obvious esophageal obstruction. - GI consulted for PEG placement, appreciated input - continue home meds - Psych consulted, input appreciated - would benefit from transfer to psychiatry upon medically stable - Psych meds adjusted - rest of plan as ordered <Thad Conn K - Last Filed: 02/10/18 08:13> Objective - Vital Signs/Intake and Output Vital Signs (last 24 hours): Temp Pulse Resp BP Pulse Ox 97.7 F 75 18 132/74 96 02/09/18 16:00 02/09/18 22:24 02/09/18 16:00 02/09/18 22:24 02/09/18 16:00 - Medications Medications: Current Medications Acetaminophen (Tylenol 325mg Tab) 650 mg PO Q4 PRN PRN Reason: Temp >100 Last Admin: 02/09/18 08:32 Dose: 650 mg Acetaminophen (Tylenol 325mg Tab) 650 mg PO Q4 PRN PRN Reason: Pain, Mild (1-3) Amlodipine Besylate (Norvasc) 5 mg PO Q12 [facility] Last Admin: 02/09/18 22:00 Dose: Not Given Aripiprazole (Abilify) 5 mg PO DAILY [facility] Last Admin: 02/09/18 10:39 Dose: 5 mg Atorvastatin Calcium (Lipitor) 80 mg PO HS [facility] Last Admin: 02/09/18 22:00 Dose: Not Given Colchicine (Colocrys) 0.6 mg PO DAILY [facility] Last Admin: 02/09/18 18:13 Dose: Not Given Cyproheptadine HCl (Periactin) 4 mg PO BID [facility] Last Admin: 02/09/18 18:18 Dose: 4 mg Docusate Sodium (Colace) 300 mg PO [facility] Last Admin: 02/09/18 22:22 Dose: Not Given Heparin Sodium (Porcine) (Heparin) 5,000 units SC Q8 [facility]; Protocol Last Admin: 02/10/18 01:24 Dose: 5,000 units Hydralazine HCl (Apresoline) 25 mg PO Q12 [facility] Last Admin: 02/09/18 22:00 Dose: Not Given Sodium Chloride (Sodium Chloride 0.9%) 1,000 mls @ 100 mls/hr IV .Q10H [facility] Stop: 02/13/18 03:10 Last Admin: 02/10/18 06:48 Dose: Not Given Megestrol Acetate (Megace) 400 mg PO BID [facility] Last Admin: 02/09/18 18:13 Dose: Not Given Metoprolol Succinate (Toprol Xl) 25 mg PO Q12 [facility] Last Admin: 02/09/18 22:24 Dose: Not Given Mirtazapine (Remeron) 15 mg PO HS [facility] Last Admin: 02/09/18 22:24 Dose: Not Given Pantoprazole Sodium (Protonix Inj) 40 mg IVP DAILY [facility] Last Admin: 02/09/18 10:36 Dose: 40 mg Polyethylene Glycol (Miralax) 17 gm PO Q48H PRN PRN Reason: Constipation Sertraline HCl (Zoloft) 50 mg PO DAILY [facility] Last Admin: 02/09/18 10:38 Dose: 50 mg - Labs Labs: 02/09/18 06:15 02/10/18 05:30 PT 12.4 Seconds (9.8-13.1) 02/08/18 06:05 INR 1.1 02/08/18 06:05 APTT 32.1 Seconds (25.6-37.1) 02/08/18 06:05 Assessment and Plan - Assessment and Plan (Free Text) Assessment: Patient was personally seen and examined by me in rounds with residents. Available labs and diagnostic data reviewed. Case, Patient's condition and management plan discussed with residents in rounds. Agree with resident's progress note. Plan: As ordered.
--- NOTE | 2018-02-09 07:55 | CP.PCM.PN ---
<Florence Fonseca - Last Filed: 02/09/18 07:51> Subjective - Date & Time of Evaluation Date of Evaluation: 02/09/18 Time of Evaluation: 06:00 - Subjective Subjective: GI Fellow PGY5 Progress Note Pt seen and evaluated, doing better with no abdominal pain.Not eating food.+BM two days ago. No fevers or chills. ROS: A 12pt ROS was negative except as above. Objective - Vital Signs/Intake and Output Vital Signs (last 24 hours): Temp Pulse Resp BP Pulse Ox 97.8 F 81 18 146/94 H 99 02/08/18 23:46 02/08/18 23:46 02/08/18 23:46 02/08/18 23:46 02/08/18 23:46 - Medications Medications: Current Medications Acetaminophen (Tylenol 325mg Tab) 650 mg PO Q4 PRN PRN Reason: Temp >100 Acetaminophen (Tylenol 325mg Tab) 650 mg PO Q4 PRN PRN Reason: Pain, Mild (1-3) Amlodipine Besylate (Norvasc) 5 mg PO Q12 [facility] Last Admin: 02/08/18 21:48 Dose: Not Given Aripiprazole (Abilify) 5 mg PO DAILY [facility] Atorvastatin Calcium (Lipitor) 80 mg PO HS [facility] Last Admin: 02/08/18 23:09 Dose: 80 mg Colchicine (Colocrys) 0.6 mg PO DAILY [facility] Last Admin: 02/08/18 09:14 Dose: Not Given Cyproheptadine HCl (Periactin) 4 mg PO BID [facility] Last Admin: 02/08/18 17:23 Dose: Not Given Docusate Sodium (Colace) 300 mg PO HS [facility] Last Admin: 02/08/18 23:09 Dose: Not Given Heparin Sodium (Porcine) (Heparin) 5,000 units SC Q8 [facility]; Protocol Last Admin: 02/09/18 01:14 Dose: 5,000 units Hydralazine HCl (Apresoline) 25 mg PO Q12 [facility] Last Admin: 02/08/18 22:59 Dose: 25 mg Sodium Chloride (Sodium Chloride 0.9%) 1,000 mls @ 100 mls/hr IV .Q10H [facility] Stop: 02/13/18 03:10 Last Admin: 02/08/18 23:08 Dose: Not Given Megestrol Acetate (Megace) 400 mg PO BID [facility] Last Admin: 02/08/18 17:23 Dose: Not Given Metoprolol Succinate (Toprol Xl) 25 mg PO Q12 [facility] Last Admin: 02/08/18 23:07 Dose: 25 mg Mirtazapine (Remeron) 15 mg PO HS [facility] Last Admin: 02/08/18 23:08 Dose: 15 mg Pantoprazole Sodium (Protonix Inj) 40 mg IVP DAILY [facility] Last Admin: 02/08/18 22:47 Dose: 40 mg Polyethylene Glycol (Miralax) 17 gm PO Q48H PRN PRN Reason: Constipation Sertraline HCl (Zoloft) 50 mg PO DAILY [facility] Last Admin: 02/08/18 09:18 Dose: Not Given - Labs Labs: 02/09/18 06:15 02/09/18 06:15 PT 12.4 Seconds (9.8-13.1) 02/08/18 06:05 INR 1.1 02/08/18 06:05 APTT 32.1 Seconds (25.6-37.1) 02/08/18 06:05 - Constitutional Appears: Non-toxic, No Acute Distress - Head Exam Head Exam: ATRAUMATIC, NORMAL INSPECTION, NORMOCEPHALIC - Eye Exam Eye Exam: EOMI, Normal appearance, PERRL Pupil Exam: PERRL - ENT Exam ENT Exam: Mucous Membranes Moist - Respiratory Exam Respiratory Exam: Clear to Ausculation Bilateral, NORMAL BREATHING PATTERN - Cardiovascular Exam Cardiovascular Exam: RRR, +S1, +S2 - GI/Abdominal Exam GI & Abdominal Exam: Soft, Normal Bowel Sounds. absent: Distended, Firm, G uarding, Rigid, Tenderness - Extremities Exam Extremities Exam: Full ROM, Normal Inspection - Back Exam Back Exam: NORMAL INSPECTION - Neurological Exam Neurological Exam: Alert, Awake - Psychiatric Exam Psychiatric exam: Normal Affect, Normal Mood - Skin Skin Exam: Dry, Intact, Normal Color, Warm Assessment and Plan - Assessment and Plan (Free Text) Assessment: 1. Poor Appetite 2. r/o Dysphagia 3. Gallstones 4. Hx of CVA 5. Depression/Suicide ideation Plan: -Continue supportive care with pain control and anti-emetics -CT imaging without contrast reviewed, concern for possible porcelain gallbladder -Abd US, neg porcelain gallbladder, +distended gallbladder with sludge and gallstones -Recommend surgical cs for possible cholecystectomy -This can explain her abdominal pain and poor appetite -Monitor LFTs -Pt initially refused swallow evaluation, recommend re-evaluation, possible oropharyngeal etiology -Barium esophagram with poor intake of oral contrast due to issues swallowing, but no obvious esophageal obstruction -Pt is depressed with suicide ideation, psych fu -Will continue to follow <Keegan Zamudio - Last Filed: 02/15/18 09:06> Objective - Vital Signs/Intake and Output Vital Signs (last 24 hours): Temp Pulse Resp BP Pulse Ox 97.1 F L 86 20 110/75 99 02/15/18 08:30 02/15/18 08:30 02/15/18 08:30 02/15/18 08:30 02/15/18 08:30 - Medications Medications: Current Medications Acetaminophen (Tylenol 325mg Tab) 650 mg PO Q4 PRN PRN Reason: Temp >100 Last Admin: 02/09/18 08:32 Dose: 650 mg Acetaminophen (Tylenol 325mg Tab) 650 mg PO Q4 PRN PRN Reason: Pain, Mild (1-3) Amlodipine Besylate (Norvasc) 5 mg PO Q12 [facility] Last Admin: 02/14/18 21:54 Dose: 5 mg Aripiprazole (Abilify) 5 mg PO DAILY [facility] Last Admin: 02/14/18 09:38 Dose: 5 mg Atorvastatin Calcium (Lipitor) 80 mg PO HS [facility] Last Admin: 02/14/18 21:53 Dose: 80 mg Bismuth Subsalicylate (Pepto-Bismol) 524 mg PO Q3H PRN PRN Reason: Diarrhea Last Admin: 02/13/18 21:38 Dose: 524 mg Colchicine (Colocrys) 0.6 mg PO DAILY [facility] Last Admin: 02/14/18 09:35 Dose: 0.6 mg Cyproheptadine HCl (Periactin) 4 mg PO BID [facility] Last Admin: 02/14/18 17:44 Dose: 4 mg Enalaprilat (Vasotec Iv) 1.25 mg IV Q6 PRN PRN Reason: Hypertension Last Admin: 02/12/18 22:11 Dose: 1.25 mg Heparin Sodium (Porcine) (Heparin) 5,000 units SC Q8 [facility]; Protocol Last Admin: 02/15/18 06:00 Dose: Not Given Hydralazine HCl (Apresoline) 25 mg PO Q12 [facility] Last Admin: 02/14/18 21:54 Dose: 25 mg Megestrol Acetate (Megace) 400 mg PO BID [facility] Last Admin: 02/14/18 17:44 Dose: 400 mg Metoprolol Succinate (Toprol Xl) 50 mg PO Q12 [facility] Last Admin: 02/14/18 22:21 Dose: 50 mg Mirtazapine (Remeron) 15 mg PO HS [facility] Last Admin: 02/14/18 21:55 Dose: 15 mg Ondansetron HCl (Zofran Inj) 4 mg IVP Q6 PRN PRN Reason: Nausea/Vomiting Last Admin: 02/15/18 06:04 Dose: 4 mg Pantoprazole Sodium (Protonix Inj) 40 mg IVP DAILY [facility] Last Admin: 02/14/18 09:42 Dose: 40 mg Potassium Chloride (Potassium Chloride Oral Soln) 40 meq PO DAILY [facility] Last Admin: 02/14/18 09:40 Dose: 40 meq Sertraline HCl (Zoloft) 50 mg PO DAILY [facility] Last Admin: 02/14/18 09:39 Dose: 50 mg - Labs Labs: 02/14/18 06:40 02/14/18 06:40 PT 13.0 Seconds (9.8-13.1) 02/13/18 06:20 INR 1.1 02/13/18 06:20 APTT 32.1 Seconds (25.6-37.1) 02/08/18 06:05 Assessment and Plan - Assessment and Plan (Free Text) Plan: Patient seen and examined Discussed with fellow and agree with above Keegan Zamudio MD, PhD
--- NOTE | 2018-02-09 10:18 | CP.PCM.CON ---
<Nury Lopes - Last Filed: 02/09/18 13:03> History of Present Illness - History of Present Illness History of Present Illness: Surgery Consult: Dr. Turcios Pt is a 68F with PMHx significant for HTN, CVA with Left sided weakness, depression & CKD who was brought to [facility] from senior living for depression, poor appetite and abdominal pain. Pt has been admitted to the psych unit multiple times for depressive episodes/suicidal ideations in the past. In the ER, pt had a CT abdomen/pelvis which showed distended GB with stones & either sludge of partially calcified GB wall. An US was then obtained and confirmed distended GB with stones & sludge. No wall thickening or pericholecystic fluid was seen. Surgery consulted to evaluate. Currently, pt is on one-to-one for suicidal ideation and resting comfortably in bed. She states she has no pain and denies nausea/vomiting. Pt with flat affect and not very engaging. As per knock out hand, bedside pt has been tolerating small amounts of food but doesn't have much of an appetite. Denies fevers/chills. PMHx: as listed above PSHx: abdominoplasty SocialHx: no hx of tobacco/EtOH/drugs, lives in senior living ALL: Penicillin Review of Systems - Review of Systems All systems: reviewed and no additional remarkable complaints except (as per HPI) Past Patient History - Past Medical History & Family History Past Medical History?: Yes - Past Social History Smoking Status: Never Smoked - CARDIAC Hx Cardiac Disorders: Yes Hx Hypertension: Yes - PULMONARY Hx Respiratory Disorders: No - NEUROLOGICAL Hx Neurological Disorder: Yes HX Cerebrovascular Accident: Yes (left hemiphlegia) - HEENT Hx HEENT Problems: No - RENAL Hx Chronic Kidney Disease: Yes - ENDOCRINE/METABOLIC Hx Endocrine Disorders: Yes Hx Diabetes Mellitus Type 2: Yes - HEMATOLOGICAL/ONCOLOGICAL Hx Blood Disorders: No Hx AIDS: No Hx Human Immunodeficiency Virus (HIV): No - INTEGUMENTARY Hx Dermatological Problems: Yes Other/Comment: healed 2 left buttocks - MUSCULOSKELETAL/RHEUMATOLOGICAL Hx Musculoskeletal Disorders: Yes Hx Falls: Yes - GASTROINTESTINAL Hx Gastrointestinal Disorders: No - GENITOURINARY/GYNECOLOGICAL Hx Genitourinary Disorders: No - PSYCHIATRIC Hx Psychophysiologic Disorder: Yes Hx Depression: Yes Hx Substance Use: No - SURGICAL HISTORY Hx Surgeries: No - ANESTHESIA Hx Anesthesia: No Hx Anesthesia Reactions: No Hx Malignant Hyperthermia: No Has any member of the family had a problem w/ anesthesia?: No Meds Allergies/Adverse Reactions: Allergies Allergy/AdvReac Type Severity Reaction Status Date / Time Penicillins Allergy RASH Verified 02/07/18 17:07 - Medications Medications: Current Medications Acetaminophen (Tylenol 325mg Tab) 650 mg PO Q4 PRN PRN Reason: Temp >100 Last Admin: 02/09/18 08:32 Dose: 650 mg Acetaminophen (Tylenol 325mg Tab) 650 mg PO Q4 PRN PRN Reason: Pain, Mild (1-3) Amlodipine Besylate (Norvasc) 5 mg PO Q12 [facility] Last Admin: 02/08/18 21:48 Dose: Not Given Aripiprazole (Abilify) 5 mg PO DAILY [facility] Atorvastatin Calcium (Lipitor) 80 mg PO HS [facility] Last Admin: 02/08/18 23:09 Dose: 80 mg Colchicine (Colocrys) 0.6 mg PO DAILY [facility] Last Admin: 02/08/18 09:14 Dose: Not Given Cyproheptadine HCl (Periactin) 4 mg PO BID [facility] Last Admin: 02/08/18 17:23 Dose: Not Given Docusate Sodium (Colace) 300 mg PO HS [facility] Last Admin: 02/08/18 23:09 Dose: Not Given Heparin Sodium (Porcine) (Heparin) 5,000 units SC Q8 [facility]; Protocol Last Admin: 02/09/18 01:14 Dose: 5,000 units Hydralazine HCl (Apresoline) 25 mg PO Q12 [facility] Last Admin: 02/08/18 22:59 Dose: 25 mg Sodium Chloride (Sodium Chloride 0.9%) 1,000 mls @ 100 mls/hr IV .Q10H [facility] Stop: 02/13/18 03:10 Last Admin: 02/08/18 23:08 Dose: Not Given Megestrol Acetate (Megace) 400 mg PO BID [facility] Last Admin: 02/08/18 17:23 Dose: Not Given Metoprolol Succinate (Toprol Xl) 25 mg PO Q12 [facility] Last Admin: 02/08/18 23:07 Dose: 25 mg Mirtazapine (Remeron) 15 mg PO HS [facility] Last Admin: 02/08/18 23:08 Dose: 15 mg Pantoprazole Sodium (Protonix Inj) 40 mg IVP DAILY [facility] Last Admin: 02/08/18 22:47 Dose: 40 mg Polyethylene Glycol (Miralax) 17 gm PO Q48H PRN PRN Reason: Constipation Sertraline HCl (Zoloft) 50 mg PO DAILY [facility] Last Admin: 02/08/18 09:18 Dose: Not Given Physical Exam - Constitutional Appears: No Acute Distress - Head Exam Head Exam: ATRAUMATIC, NORMOCEPHALIC - Eye Exam Eye Exam: Normal appearance - ENT Exam ENT Exam: Mucous Membranes Moist - Respiratory Exam Respiratory Exam: NORMAL BREATHING PATTERN - Cardiovascular Exam Cardiovascular Exam: RRR - GI/Abdominal Exam GI & Abdominal Exam: Soft. absent: Distended, Guarding, Rebound, Tenderness - Neurological Exam Neurological exam: Alert - Skin Skin Exam: Dry, Warm Results - Vital Signs Recent Vital Signs: Last Vital Signs Temp 98.5 F 02/09/18 08:43 Pulse 71 02/09/18 08:43 Resp 19 02/09/18 08:43 BP 137/90 02/09/18 08:43 Pulse Ox 96 02/09/18 08:43 - Labs Result Diagrams: 02/09/18 06:15 02/09/18 06:15 Labs: Laboratory Results - last 24 hr 02/08/18 02/08/18 02/09/18 15:50 21:26 05:56 WBC RBC Hgb Hct MCV MCH MCHC RDW Plt Count Sodium Potassium Chloride Carbon Dioxide Anion Gap BUN Creatinine Est GFR ( Amer) Est GFR (Non-Af Amer) POC Glucose (mg/dL) 147 H 115 H 113 H Random Glucose Calcium Phosphorus Magnesium Total Bilirubin AST ALT Alkaline Phosphatase Total Protein Albumin Globulin Albumin/Globulin Ratio Lipase 02/09/18 02/09/18 06:15 06:15 WBC 4.8 RBC 4.14 Hgb 13.1 Hct 40.2 MCV 97.0 D MCH 31.6 H MCHC 32.6 L RDW 18.0 H Plt Count 282 Sodium 143 Potassium 3.7 Chloride 114 H Carbon Dioxide 16 L Anion Gap 17 BUN 50 H Creatinine 2.1 H Est GFR ( Amer) 29 Est GFR (Non-Af Amer) 24 POC Glucose (mg/dL) Random Glucose 111 H Calcium 9.3 Phosphorus 3.5 Magnesium 1.9 Total Bilirubin 0.6 AST 38 H ALT 13 Alkaline Phosphatase 116 Total Protein 6.7 Albumin 3.2 L Globulin 3.5 Albumin/Globulin Ratio 0.9 L Lipase 753 H - Imaging and Cardiology CT scan - abdomen Status: Image reviewed by me, Report reviewed by me US - abdomen Status: Image reviewed by me, Report reviewed by me Assessment & Plan - Assessment and Plan (Free Text) Assessment: 68F with cholelithiasis Plan: - pt without any pain or symptoms of acute cholecystitis. GB likely distended due to poor PO intake - no plan for surgical intervention at this time - d/w Dr. Tam Lopes <Regis Turcios - Last Filed: 02/18/18 17:10> Results - Vital Signs Recent Vital Signs: Last Vital Signs Temp 98.2 F 02/16/18 09:00 Pulse 97 H 02/16/18 09:21 Resp 19 02/16/18 09:00 BP 107/72 02/16/18 09:21 Pulse Ox 100 02/16/18 09:00 - Labs Result Diagrams: 02/14/18 06:40 02/14/18 06:40 Attending/Attestation - Attestation I have personally seen and examined this patient.: Yes I have fully participated in the care of the patient.: Yes I have reviewed all pertinent clinical information: Yes Notes (Text): Pt was seen and examined at bedside Agree with above note and assessment Pt is 68 year old female with Suicide ideation with CT findings of Cholelithiasis No abdominal pain and nausea Abdomen: Soft, NT, ND Labs and radiology reviewed Ass: Cholelithiasis, Suicide ideation, Severe depression Plan: C.w current mx No need for surgical intervention at present for Cholelithiasis Plan d.w PMD on phone Plan dEsmew pt in detail. Risk and Benefit explained in detail
[2018-02-09] MEDS: Megestrol Acetate 40 mg/ml Cup PO SCH ×2 (10:35→18:13)
[2018-02-09] MEDS: Metoprolol Succinate 25 mg XL Tab PO SCH ×3 (10:37→22:24)
--- NOTE | 2018-02-09 14:26 | CP.PCM.CON ---
History of Present Illness - History of Present Illness History of Present Illness: follow up consult Pt is a 68F with previous hx of depression HTN, CVA with Left sided weakness, who was brought to [facility] from senior care for depression, poor appetite and abdominal pain. Pt has been admitted to the psych unit multiple times for depressive episodes/suicidal ideations pt on initial evaluation was guarded and evasive, poor eye contact underproductive speech reported active suicidal ideation on re evaluation, pt continues to present with depressed mood , dysphoric affect, very limited speech, , poor eye contact, when asked about suicidal ideation, she continues to nod her head as yes, guarded and evasive Past Patient History - Past Medical History & Family History Past Medical History?: Yes - Past Social History Smoking Status: Never Smoked - CARDIAC Hx Cardiac Disorders: Yes Hx Hypertension: Yes - PULMONARY Hx Respiratory Disorders: No - NEUROLOGICAL Hx Neurological Disorder: Yes HX Cerebrovascular Accident: Yes (left hemiphlegia) - HEENT Hx HEENT Problems: No - RENAL Hx Chronic Kidney Disease: Yes - ENDOCRINE/METABOLIC Hx Endocrine Disorders: Yes Hx Diabetes Mellitus Type 2: Yes - HEMATOLOGICAL/ONCOLOGICAL Hx Blood Disorders: No Hx AIDS: No Hx Human Immunodeficiency Virus (HIV): No - INTEGUMENTARY Hx Dermatological Problems: Yes Other/Comment: healed 2 left buttocks - MUSCULOSKELETAL/RHEUMATOLOGICAL Hx Musculoskeletal Disorders: Yes Hx Falls: Yes - GASTROINTESTINAL Hx Gastrointestinal Disorders: No - GENITOURINARY/GYNECOLOGICAL Hx Genitourinary Disorders: No - PSYCHIATRIC Hx Psychophysiologic Disorder: Yes Hx Depression: Yes Hx Substance Use: No - SURGICAL HISTORY Hx Surgeries: No - ANESTHESIA Hx Anesthesia: No Hx Anesthesia Reactions: No Hx Malignant Hyperthermia: No Has any member of the family had a problem w/ anesthesia?: No Meds Allergies/Adverse Reactions: Allergies Allergy/AdvReac Type Severity Reaction Status Date / Time Penicillins Allergy RASH Verified 02/07/18 17:07 - Medications Medications: Current Medications Acetaminophen (Tylenol 325mg Tab) 650 mg PO Q4 PRN PRN Reason: Temp >100 Last Admin: 02/09/18 08:32 Dose: 650 mg Acetaminophen (Tylenol 325mg Tab) 650 mg PO Q4 PRN PRN Reason: Pain, Mild (1-3) Amlodipine Besylate (Norvasc) 5 mg PO Q12 [facility] Last Admin: 02/09/18 10:35 Dose: 5 mg Aripiprazole (Abilify) 5 mg PO DAILY [facility] Last Admin: 02/09/18 10:39 Dose: 5 mg Atorvastatin Calcium (Lipitor) 80 mg PO HS [facility] Last Admin: 02/08/18 23:09 Dose: 80 mg Colchicine (Colocrys) 0.6 mg PO DAILY [facility] Last Admin: 02/09/18 10:34 Dose: 0.6 mg Cyproheptadine HCl (Periactin) 4 mg PO BID [facility] Last Admin: 02/09/18 10:36 Dose: 4 mg Docusate Sodium (Colace) 300 mg PO HS [facility] Last Admin: 02/08/18 23:09 Dose: Not Given Heparin Sodium (Porcine) (Heparin) 5,000 units SC Q8 [facility]; Protocol Last Admin: 02/09/18 10:34 Dose: 5,000 units Hydralazine HCl (Apresoline) 25 mg PO Q12 [facility] Last Admin: 02/09/18 10:39 Dose: 25 mg Sodium Chloride (Sodium Chloride 0.9%) 1,000 mls @ 100 mls/hr IV .Q10H [facility] Stop: 02/13/18 03:10 Last Admin: 02/08/18 23:08 Dose: Not Given Megestrol Acetate (Megace) 400 mg PO BID [facility] Last Admin: 02/09/18 10:35 Dose: 400 mg Metoprolol Succinate (Toprol Xl) 25 mg PO Q12 [facility] Last Admin: 02/09/18 10:37 Dose: 25 mg Mirtazapine (Remeron) 15 mg PO HS [facility] Last Admin: 02/08/18 23:08 Dose: 15 mg Pantoprazole Sodium (Protonix Inj) 40 mg IVP DAILY [facility] Last Admin: 02/09/18 10:36 Dose: 40 mg Polyethylene Glycol (Miralax) 17 gm PO Q48H PRN PRN Reason: Constipation Sertraline HCl (Zoloft) 50 mg PO DAILY [facility] Last Admin: 02/09/18 10:38 Dose: 50 mg Results - Vital Signs Recent Vital Signs: Last Vital Signs Temp 98.5 F 02/09/18 08:43 Pulse 71 02/09/18 10:39 Resp 19 02/09/18 08:43 BP 137/91 H 02/09/18 10:39 Pulse Ox 96 02/09/18 08:43 - Labs Result Diagrams: 02/09/18 06:15 02/09/18 06:15 Labs: Laboratory Results - last 24 hr 02/08/18 02/08/18 02/09/18 15:50 21:26 05:56 WBC RBC Hgb Hct MCV MCH MCHC RDW Plt Count Sodium Potassium Chloride Carbon Dioxide Anion Gap BUN Creatinine Est GFR ( Amer) Est GFR (Non-Af Amer) POC Glucose (mg/dL) 147 H 115 H 113 H Random Glucose Calcium Phosphorus Magnesium Total Bilirubin AST ALT Alkaline Phosphatase Total Protein Albumin Globulin Albumin/Globulin Ratio Lipase 02/09/18 02/09/18 02/09/18 06:15 06:15 11:02 WBC 4.8 RBC 4.14 Hgb 13.1 Hct 40.2 MCV 97.0 D MCH 31.6 H MCHC 32.6 L RDW 18.0 H Plt Count 282 Sodium 143 Potassium 3.7 Chloride 114 H Carbon Dioxide 16 L Anion Gap 17 BUN 50 H Creatinine 2.1 H Est GFR ( Amer) 29 Est GFR (Non-Af Amer) 24 POC Glucose (mg/dL) 135 H Random Glucose 111 H Calcium 9.3 Phosphorus 3.5 Magnesium 1.9 Total Bilirubin 0.6 AST 38 H ALT 13 Alkaline Phosphatase 116 Total Protein 6.7 Albumin 3.2 L Globulin 3.5 Albumin/Globulin Ratio 0.9 L Lipase 753 H Assessment & Plan - Assessment and Plan (Free Text) Assessment: major depression recurrent severe Plan: continue 1:1 for suicide risk continue with remeron, abilify and zoloft pt would be transferred to geriatric psychiatry upon medical clearance for stabilization and with the consent of CHRISTOPHER
[2018-02-09 21:00] LABS: SQUAMOUS EPITHIAL 2 /hpf (0-5); URINE BACTERIA MANY (<OCC); URINE BILIRUBIN NEGATIVE (NEGATIVE); URINE BLOOD SMALL (NEGATIVE); URINE CLARITY CLOUDY (Clear); URINE COLOR YELLOW (YELLOW); URINE GLUCOSE (UA) >=500 mg/dL (Normal); URINE LEUKOCYTE ESTERASE LARGE Leu/uL (Negative); URINE PROTEIN NEGATIVE (NEGATIVE); URINE UROBILINOGEN 0.2-1.0 mg/dL (0.2-1.0)
[2018-02-09] MEDS: Sodium Chloride 0.9% 1,000 ML IV SCH (22:26)
[2018-02-10] MEDS: Sodium Chloride 0.9% 1,000 ML IV SCH ×3 (06:48→17:18)
--- NOTE | 2018-02-10 07:40 | PQF ---
PROVIDER RESPONSE TEXT: Ckd 3 REVIEWER QUERY TEXT: Kidney Disease, Chronic CKD Stage Two (2) queries : 1) Please clarify the stage of CKD 2) Please clarify if there is an associated diagnosis or not to go along with the creatinine shift fr om 2.7-> 2.1 after IVF Chronic Kidney Disease (CKD) is documented in the Medical Record. Please specify the disease stage ( includes probable or suspected) Such as: -- Chronic kidney disease Stage 1 -- Chronic kidney disease Stage 2 -- Chronic kidney disease Stage 3 -- Chronic kidney disease Stage 4 -- Chronic kidney disease Stage 5 -- Chronic kidney disease Stage 5, requiring dialysis -- End Stage Renal Disease -- Other, please specify Stages are defined by the [employer] as follows: CKD Stage I GFR >= 90 ml / min per 1.73 m2 and persistent albuminuria CKD Stage 2 GFR between 60 and 89 with persistent albuminuria CKD Stage 3 GFR between 30 and 59 CKD Stage 4 GFR between 15 and 29 CKD Stage 5 GFR between <15 or End Stage Renal Disease The patient's Clinical Indicators include: Documentation of CKD. Admitted with abdominal pain, vomiting and depression. BUN 64-> 50 Creatinine 2.7-> 2.1 GFR: 18-> 24 Rx: IVF Query created by: Ольга Cedeno on 02/09/2018 11:03 AM Electronically signed by: hTad Conn 02/10/2018 7:37 AM
[2018-02-10 07:54] LABS: ALB/GLOB RATIO 0.8 (1.0-2.1); ALBUMIN 2.5 g/dL (3.5-5.0); CALCIUM 8.4 mg/dL (8.4-10.2)
[2018-02-10] MEDS: Metoprolol Succinate 25 mg XL Tab PO SCH ×2 (09:08→22:00)
[2018-02-10] MEDS: Megestrol Acetate 40 mg/ml Cup PO SCH ×2 (09:10→17:17)
[2018-02-10] MEDS: Potassium CL 10mEq/100ml 100 ML IVPB SCH ×4 (17:14→20:36)
[2018-02-11] MEDS: Sodium Chloride 0.9% 1,000 ML IV SCH ×2 (04:26→17:04)
[2018-02-11 07:40] LABS: BLOOD UREA NITROGEN 23 mg/dl (7-17); CALCIUM 8.1 mg/dL (8.4-10.2); GFR NON-AFRICAN AMERICAN 50
[2018-02-11] MEDS: Metoprolol Succinate 25 mg XL Tab PO SCH ×3 (08:37→21:37)
[2018-02-11] MEDS: Megestrol Acetate 40 mg/ml Cup PO SCH ×2 (08:41→16:55)
--- NOTE | 2018-02-11 16:30 | PN ---
DATE: 02/11/2018 SUBJECTIVE: The patient is seen and examined. Interim events noted. The patient is sleepy and arousable, feels okay. Denies any specific complaints. The patient remains uncooperative and using medicines, also does not have adequate calorie intake. No other specific issue reported by Nursing staff. PHYSICAL EXAMINATION: GENERAL: The patient is in no acute distress. VITAL SIGNS: Stable. HEART: S1 and S2, normal and regular. LUNGS: Good bilateral air exchange. ABDOMEN: Soft, and nontender. EXTREMITIES: No edema. No calf swelling. No tenderness. No ischemia. 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 The patient has CVA . DIAGNOSTIC DATA: Available diagnostic data reviewed. PLAN: Overall, the patient's general medication condition is stable. Thad Conn MD
[2018-02-11] MEDS: EnalaprilAT 1.25 mg/ml Inj IV PRN (22:23)
[2018-02-12] MEDS: Sodium Chloride 0.9% 1,000 ML IV SCH (00:40)
[2018-02-12 06:42] LABS: HEMOGLOBIN 12.3 g/dL (12.0-16.0); MEAN CELL VOLUME 96.1 fl (81.0-99.0); MEAN CORPUSCULAR HGB CONC 33.3 g/dL (33.0-37.0); RBC 3.86 Mil/uL (3.80-5.20); RED CELL DISTRIBUTION WIDTH 17.9 % (11.5-14.5); WHITE BLOOD COUNT 4.9 K/uL (4.8-10.8)
[2018-02-12 07:02] LABS: ALB/GLOB RATIO 0.8 (1.0-2.1); ALBUMIN 2.3 g/dL (3.5-5.0); ALT/SGPT 15 U/L (9-52); AST/SGOT 22 U/L (14-36); BLOOD UREA NITROGEN 16 mg/dl (7-17); CALCIUM 8.2 mg/dL (8.4-10.2); GFR NON-AFRICAN AMERICAN 50
[2018-02-12] MEDS: Metoprolol Succinate 25 mg XL Tab PO SCH ×2 (10:09→22:15)
[2018-02-12] MEDS: Megestrol Acetate 40 mg/ml Cup PO SCH ×2 (10:09→17:31)
--- NOTE | 2018-02-12 11:55 | CP.PCM.PN ---
Subjective - Date & Time of Evaluation Date of Evaluation: 02/12/18 Time of Evaluation: 08:30 - Subjective Subjective: no overnight events Objective - Vital Signs/Intake and Output Vital Signs (last 24 hours): Temp Pulse Resp BP Pulse Ox 98.6 F 101 H 18 129/89 97 02/12/18 08:12 02/12/18 08:12 02/12/18 08:12 02/12/18 08:12 02/12/18 08:12 - Medications Medications: Current Medications Acetaminophen (Tylenol 325mg Tab) 650 mg PO Q4 PRN PRN Reason: Temp >100 Last Admin: 02/09/18 08:32 Dose: 650 mg Acetaminophen (Tylenol 325mg Tab) 650 mg PO Q4 PRN PRN Reason: Pain, Mild (1-3) Amlodipine Besylate (Norvasc) 5 mg PO Q12 [facility] Last Admin: 02/12/18 10:09 Dose: Not Given Aripiprazole (Abilify) 5 mg PO DAILY [facility] Last Admin: 02/12/18 10:09 Dose: Not Given Atorvastatin Calcium (Lipitor) 80 mg PO HS [facility] Last Admin: 02/11/18 21:41 Dose: Not Given Colchicine (Colocrys) 0.6 mg PO DAILY [facility] Last Admin: 02/12/18 10:09 Dose: Not Given Cyproheptadine HCl (Periactin) 4 mg PO BID [facility] Last Admin: 02/12/18 10:09 Dose: Not Given Docusate Sodium (Colace) 300 mg PO HS [facility] Last Admin: 02/11/18 21:40 Dose: Not Given Enalaprilat (Vasotec Iv) 1.25 mg IV Q6 PRN PRN Reason: Hypertension Last Admin: 02/11/18 22:23 Dose: 1.25 mg Hydralazine HCl (Apresoline) 25 mg PO Q12 [facility] Last Admin: 02/12/18 10:09 Dose: Not Given Potassium Chloride/Sodium Chloride (Potassium Chl 20 Meq In Ns) 1,000 mls @ 100 mls/hr IV .Q10H [facility] Stop: 02/13/18 03:10 Vancomycin HCl 1 gm/ Sodium (Chloride) 250 mls @ 166.667 mls/hr IVPB ONCE ONE; Protocol Stop: 02/13/18 09:29 Megestrol Acetate (Megace) 400 mg PO BID [facility] Last Admin: 02/12/18 10:09 Dose: Not Given Metoprolol Succinate (Toprol Xl) 25 mg PO Q12 [facility] Last Admin: 02/12/18 10:09 Dose: Not Given Mirtazapine (Remeron) 15 mg PO HS [facility] Last Admin: 02/11/18 21:42 Dose: Not Given Ondansetron HCl (Zofran Inj) 4 mg IVP Q6 PRN PRN Reason: Nausea/Vomiting Pantoprazole Sodium (Protonix Inj) 40 mg IVP DAILY [facility] Last Admin: 02/12/18 08:26 Dose: 40 mg Polyethylene Glycol (Miralax) 17 gm PO Q48H PRN PRN Reason: Constipation Potassium Chloride (Potassium Chloride Oral Soln) 40 meq PO DAILY [facility] Sertraline HCl (Zoloft) 50 mg PO DAILY [facility] Last Admin: 02/12/18 10:10 Dose: Not Given - Labs Labs: 02/12/18 06:15 02/12/18 06:15 PT 12.4 Seconds (9.8-13.1) 02/08/18 06:05 INR 1.1 02/08/18 06:05 APTT 32.1 Seconds (25.6-37.1) 02/08/18 06:05 - Head Exam Head Exam: NORMOCEPHALIC - Neck Exam Neck Exam: Normal Inspection - Cardiovascular Exam Cardiovascular Exam: REGULAR RHYTHM - GI/Abdominal Exam GI & Abdominal Exam: Soft, Normal Bowel Sounds Assessment and Plan - Assessment and Plan (Free Text) Assessment: 68 yo female with FTT peg in am
[2018-02-12] MEDS: Potassium Chl 20 mEq in NS 1,000 ML IV SCH (12:28)
--- NOTE | 2018-02-12 12:52 | PN ---
DATE: 02/12/2018 SUBJECTIVE: The patient is seen and examined. Interim events noted. The patient denies any specific complaints. Nursing staff report the patient being uncooperative with using medications and also . PHYSICAL EXAMINATION: GENERAL: The patient is depressed, but in no acute distress. VITAL SIGNS: Stable. HEART: S1 and S2 normal and regular. LUNGS: Good bilateral air exchange. ABDOMEN: Soft and nontender. EXTREMITIES: No edema. No calf swelling. No tenderness. No acute ischemia. REGISTERED DENTAL ASSISTANT RDA: Essentially unchanged. The patient has residual hemiparesis. DIAGNOSTIC DATA: Available diagnostic data reviewed. ASSESSMENT AND PLAN: Overall, the patient is hemodynamically stable. Possible PEG insertion this week. Plan as ordered. Thad Conn MD
[2018-02-12] MEDS: Potassium Chloride 20 mEq/15 ml LIQ UD PO SCH (12:57)
[2018-02-12] MEDS: EnalaprilAT 1.25 mg/ml Inj IV PRN (22:11)
[2018-02-13] MEDS: Potassium Chl 20 mEq in NS 1,000 ML IV SCH (00:10)
[2018-02-13 06:46] LABS: INR 1.1
[2018-02-13 06:53] LABS: ALB/GLOB RATIO 0.9 (1.0-2.1); ALBUMIN 2.5 g/dL (3.5-5.0); ALT/SGPT 20 U/L (9-52); AST/SGOT 35 U/L (14-36); BLOOD UREA NITROGEN 15 mg/dl (7-17); CALCIUM 8.6 mg/dL (8.4-10.2); GFR NON-AFRICAN AMERICAN 50
[2018-02-13 07:02] LABS: HEMOGLOBIN 12.1 g/dL (12.0-16.0); MEAN CELL VOLUME 98.1 fl (81.0-99.0); MEAN CORPUSCULAR HEMOGLOBIN 31.3 pg (27.0-31.0); MEAN CORPUSCULAR HGB CONC 31.9 g/dL (33.0-37.0); RBC 3.86 Mil/uL (3.80-5.20); RED CELL DISTRIBUTION WIDTH 18.3 % (11.5-14.5)
[2018-02-13] MEDS ORDERED: Lactated Ringer's 500 ML IV ONE (08:08)
[2018-02-13] MEDS ORDERED: Vancomycin 1 g Inj IVPB ONE (08:45)
[2018-02-13] MEDS ORDERED: Etomidate 20 mg/10ml Inj IV ONE (08:50)
[2018-02-13] MEDS ORDERED: Propofol 10 mg/ml Inj (20 ML) ONE (08:51)
[2018-02-13] MEDS: Megestrol Acetate 40 mg/ml Cup PO SCH ×2 (09:42→16:42)
--- NOTE | 2018-02-13 11:01 | PN ---
DATE: 02/13/2018 SUBJECTIVE: The patient seen and examined. Interim events noted. Consults noted and appreciated. Gastroenterology followup and intervention noted and appreciated. The patient remains in regular medical floor with observation for safety. The patient is not able to provide informative history or review of systems. Denies any specific medical complaint or chest pain or shortness of breath. Still remains uncooperative with using medications, also remains with very poor appetite and oral intake. PHYSICAL EXAMINATION: GENERAL: The patient is in no acute distress. VITAL SIGNS: Stable. HEART: S1 and S2. Normal and regular. LUNGS: Good bilateral air exchange. ABDOMEN: Soft and nontender. EXTREMITIES: No edema. No calf swelling. No tenderness. No acute ischemia. 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 DIAGNOSTIC DATA: Available diagnostic data reviewed. ASSESSMENT AND PLAN: Overall, the patient's general medical condition is stable. The patient is tentatively scheduled for percutaneous endoscopic gastrostomy today. Plan as ordered. Thad Conn MD
[2018-02-13] MEDS: Potassium Chloride 20 mEq/15 ml LIQ UD PO SCH (11:39)
[2018-02-13] MEDS: Metoprolol Succinate 25 mg XL Tab PO SCH ×2 (11:41→21:37)
--- NOTE | 2018-02-13 15:33 | PQF ---
PROVIDER RESPONSE TEXT: Abdominal pain and nausea vomiting due to acute cholecystitis and pancreatitis REVIEWER QUERY TEXT: Symptom Underlying Cause Please document the underlying diagnosis causing the patient?s documented symptom(s) of abdominal diane n , nausea and vomiting or whether those are insignificant or unable to be further specified. Diagnoses include : Abdominal pain, Cholelithiasis, Poor appetite, R/O dysphagia, Failure To Thrive, Depression The patient's Clinical Indicators include: CT ABDOMEN: Distended gallbladder containing sludge and either small stones or a partially calcified gallbladder wall. US ABDOMEN: Distended gallbladder containing sludge and gallstones. No sonographic findings to sugges t acute cholecystitis. EGD: Gastritis and PEG inserted. Query created by: Ольга Cedeno on 02/13/2018 1:44 PM Electronically signed by: Thad Conn 02/13/2018 3:30 PM
--- NOTE | 2018-02-13 15:33 | PQF ---
PROVIDER RESPONSE TEXT: Pancreatitis secondary to cholecystitis REVIEWER QUERY TEXT: Documentation Clarification Your help is requested in clarifying the following clinical documentation, if you can please further specify in the medical record and discharge summary. Admitting order has Pancreatitis . No documentation in the EMR of Pancreatitis. Lipase is elevated at [address] abdomen and ultrasound: Pancreas: Unremarkable. Please clarify if Pancreatitis is ruled in or ruled out. The patient's Clinical Indicators include: Admitting order has Pancreatitis . No documentation in the EMR of Pancreatitis. Lipase is elevated at [address] abdomen and ultrasound: Pancreas: Unremarkable. Please clarify if Pancreatitis is ruled in or ruled out. Query created by: Ольга Cedeno on 02/09/2018 11:07 AM Electronically signed by: Thad Conn 02/13/2018 3:30 PM
[2018-02-13] MEDS ORDERED: Bismuth Subsalicylate 262 mg/15 ml Sus (240 ml) PO PRN (19:24)
[2018-02-14] MEDS: Potassium Chl 20 mEq in D5-NS 1,000 ML IV SCH ×2 (00:27→14:45)
[2018-02-14 06:57] LABS: HEMOGLOBIN 11.8 g/dL (12.0-16.0); MEAN CELL VOLUME 95.9 fl (81.0-99.0); MEAN CORPUSCULAR HGB CONC 32.3 g/dL (33.0-37.0); RBC 3.8 Mil/uL (3.80-5.20); RED CELL DISTRIBUTION WIDTH 18.2 % (11.5-14.5); WHITE BLOOD COUNT 7.8 K/uL (4.8-10.8)
[2018-02-14 07:25] LABS: ALB/GLOB RATIO 0.8 (1.0-2.1); ALBUMIN 2.2 g/dL (3.5-5.0); CALCIUM 8.6 mg/dL (8.4-10.2)
--- NOTE | 2018-02-14 08:10 | CP.PCM.PN ---
<Cyrus Farr - Last Filed: 02/14/18 12:48> Subjective - Date & Time of Evaluation Date of Evaluation: 02/14/18 Time of Evaluation: 08:10 - Subjective Subjective: Patient seen and examined today with Dr Conn, c/o mild abd pain, got PEG tube yesterday. Asking for food, toke some sips of juice. Afebrile, VSS Objective - Vital Signs/Intake and Output Vital Signs (last 24 hours): Temp Pulse Resp BP Pulse Ox 98.4 F 103 H 20 118/75 100 02/14/18 08:04 02/14/18 08:04 02/14/18 08:04 02/14/18 08:04 02/14/18 08:04 - Medications Medications: Current Medications Acetaminophen (Tylenol 325mg Tab) 650 mg PO Q4 PRN PRN Reason: Temp >100 Last Admin: 02/09/18 08:32 Dose: 650 mg Acetaminophen (Tylenol 325mg Tab) 650 mg PO Q4 PRN PRN Reason: Pain, Mild (1-3) Amlodipine Besylate (Norvasc) 5 mg PO Q12 [facility] Last Admin: 02/13/18 21:36 Dose: 5 mg Aripiprazole (Abilify) 5 mg PO DAILY [facility] Last Admin: 02/13/18 11:36 Dose: 5 mg Atorvastatin Calcium (Lipitor) 80 mg PO HS [facility] Last Admin: 02/13/18 21:36 Dose: 80 mg Bismuth Subsalicylate (Pepto-Bismol) 524 mg PO Q3H PRN PRN Reason: Diarrhea Last Admin: 02/13/18 21:38 Dose: 524 mg Colchicine (Colocrys) 0.6 mg PO DAILY [facility] Last Admin: 02/13/18 11:37 Dose: 0.6 mg Cyproheptadine HCl (Periactin) 4 mg PO BID [facility] Last Admin: 02/13/18 19:43 Dose: 4 mg Enalaprilat (Vasotec Iv) 1.25 mg IV Q6 PRN PRN Reason: Hypertension Last Admin: 02/12/18 22:11 Dose: 1.25 mg Heparin Sodium (Porcine) (Heparin) 5,000 units SC Q8 [facility]; Protocol Hydralazine HCl (Apresoline) 25 mg PO Q12 [facility] Last Admin: 02/13/18 21:36 Dose: 25 mg Potassium Chloride/Dextrose/Sod Cl (Potassium Chl 20 Meq In D5-Ns) 1,000 mls @ 80 mls/hr IV .[id number] [facility] Stop: 02/14/18 23:34 Last Admin: 02/14/18 00:27 Dose: 80 mls/hr Megestrol Acetate (Megace) 400 mg PO BID [facility] Last Admin: 02/13/18 16:42 Dose: 400 mg Metoprolol Succinate (Toprol Xl) 50 mg PO Q12 [facility] Mirtazapine (Remeron) 15 mg PO HS [facility] Last Admin: 02/13/18 21:36 Dose: 15 mg Ondansetron HCl (Zofran Inj) 4 mg IVP Q6 PRN PRN Reason: Nausea/Vomiting Last Admin: 02/13/18 20:05 Dose: 4 mg Pantoprazole Sodium (Protonix Inj) 40 mg IVP DAILY [facility] Last Admin: 02/13/18 11:42 Dose: 40 mg Potassium Chloride (Potassium Chloride Oral Soln) 40 meq PO DAILY [facility] Last Admin: 02/13/18 11:39 Dose: 40 meq Sertraline HCl (Zoloft) 50 mg PO DAILY [facility] Last Admin: 02/13/18 11:38 Dose: 50 mg - Labs Labs: 02/14/18 06:40 02/14/18 06:40 PT 13.0 Seconds (9.8-13.1) 02/13/18 06:20 INR 1.1 02/13/18 06:20 APTT 32.1 Seconds (25.6-37.1) 02/08/18 06:05 - Constitutional Appears: No Acute Distress - Head Exam Head Exam: NORMAL INSPECTION - Eye Exam Eye Exam: EOMI - Respiratory Exam Respiratory Exam: Clear to Ausculation Bilateral - Cardiovascular Exam Cardiovascular Exam: REGULAR RHYTHM, +S1, +S2 - GI/Abdominal Exam GI & Abdominal Exam: Soft, Tenderness (diffuse, mild). absent: Distended Additional comments: PEG tube in place, clean - Extremities Exam Extremities Exam: absent: Pedal Edema - Neurological Exam Neurological Exam: Alert, Awake, Oriented x3 - Skin Skin Exam: Dry, Warm Assessment and Plan - Assessment and Plan (Free Text) Assessment: 68 year old female with a past medical history of CVA, HTN, diabetes, and chronic kidney disease admitted due to abdominal pain, loss of appetite and depression/SI. Plan: - stable, doing little better - all labs reviewed - GI consulted, appreciated input - PEG tube yesterday - continue home meds - Cleared by Psych for discharge - Psych meds adjusted - rest of plan as ordered <Thad Conn - Last Filed: 02/16/18 15:51> Objective - Vital Signs/Intake and Output Vital Signs (last 24 hours): Temp Pulse Resp BP Pulse Ox 98.2 F 97 H 19 107/72 100 02/16/18 09:00 02/16/18 09:21 02/16/18 09:00 02/16/18 09:21 02/16/18 09:00 - Medications Medications: Current Medications Acetaminophen (Tylenol 325mg Tab) 650 mg PO Q4 PRN PRN Reason: Temp >100 Last Admin: 02/09/18 08:32 Dose: 650 mg Acetaminophen (Tylenol 325mg Tab) 650 mg PO Q4 PRN PRN Reason: Pain, Mild (1-3) Amlodipine Besylate (Norvasc) 5 mg PO Q12 [facility] Last Admin: 02/16/18 09:20 Dose: 5 mg Aripiprazole (Abilify) 5 mg PO DAILY [facility] Last Admin: 02/16/18 09:21 Dose: 5 mg Atorvastatin Calcium (Lipitor) 80 mg PO HS [facility] Last Admin: 02/15/18 23:06 Dose: 80 mg Bismuth Subsalicylate (Pepto-Bismol) 524 mg PO Q3H PRN PRN Reason: Diarrhea Last Admin: 02/13/18 21:38 Dose: 524 mg Colchicine (Colocrys) 0.6 mg PO DAILY [facility] Last Admin: 02/16/18 09:20 Dose: 0.6 mg Cyproheptadine HCl (Periactin) 4 mg PO BID [facility] Last Admin: 02/16/18 09:20 Dose: 4 mg Enalaprilat (Vasotec Iv) 1.25 mg IV Q6 PRN PRN Reason: Hypertension Last Admin: 02/12/18 22:11 Dose: 1.25 mg Heparin Sodium (Porcine) (Heparin) 5,000 units SC Q8 [facility]; Protocol Last Admin: 02/16/18 09:19 Dose: 5,000 units Hydralazine HCl (Apresoline) 25 mg PO Q12 [facility] Last Admin: 02/16/18 09:21 Dose: 25 mg Insulin Human Regular (Humulin R) 0 units SC ACHS [facility]; Protocol Last Admin: 02/16/18 13:08 Dose: 4 units Magnesium Oxide (Mag-Ox) 400 mg PO BID [facility] Last Admin: 02/16/18 09:20 Dose: 400 mg Megestrol Acetate (Megace) 400 mg PO BID [facility] Last Admin: 02/16/18 09:19 Dose: 400 mg Metoprolol Succinate (Toprol Xl) 50 mg PO Q12 [facility] Last Admin: 02/16/18 09:45 Dose: Not Given Mirtazapine (Remeron) 15 mg PO HS [facility] Last Admin: 02/15/18 23:06 Dose: 15 mg Nystatin (Nystop Topical Powder) 1 applic TOP TID [facility] Last Admin: 02/16/18 13:09 Dose: 1 applic Ondansetron HCl (Zofran Inj) 4 mg IVP Q6 PRN PRN Reason: Nausea/Vomiting Last Admin: 02/15/18 06:04 Dose: 4 mg Pantoprazole Sodium (Protonix Inj) 40 mg IVP DAILY [facility] Last Admin: 02/16/18 09:18 Dose: 40 mg Potassium Chloride (Potassium Chloride Oral Soln) 40 meq PO DAILY [facility] Last Admin: 02/16/18 09:19 Dose: 40 meq Sertraline HCl (Zoloft) 50 mg PO DAILY [facility] Last Admin: 02/16/18 09:20 Dose: 50 mg - Labs Labs: 02/14/18 06:40 02/14/18 06:40 PT 13.0 Seconds (9.8-13.1) 02/13/18 06:20 INR 1.1 02/13/18 06:20 APTT 32.1 Seconds (25.6-37.1) 02/08/18 06:05 Assessment and Plan - Assessment and Plan (Free Text) Assessment: Patient was personally seen and examined by me in rounds with residents. Available labs and diagnostic data reviewed. Case, Patient's condition and management plan discussed with residents in rounds. Agree with resident's progress note. Plan: As ordered.
[2018-02-14] MEDS: Potassium Chloride 20 mEq/15 ml LIQ UD PO SCH (09:40)
[2018-02-14] MEDS: Megestrol Acetate 40 mg/ml Cup PO SCH ×2 (09:40→17:44)
--- NOTE | 2018-02-14 12:10 | CP.PCM.CON ---
History of Present Illness - History of Present Illness History of Present Illness: Psychiatry consult follow-up note HPI: 68 yo female w/ h/o HTN, CVA w/ Left sided weakness, BIB [facility] for abdominal pain and poor appetite. Patient nodded her head "yes" when asked about suicidal ideation on initial psychiatric evaluation 1 week ago, w/o any expressed plan or intent; but has not expressed any continued suicidal ideations, nor any plan or intent. She denies feeling acutely depressed/anxious/AH/VH/SI/HI. She denies psychiatric complaints and denies that her poor appetite is due to depression. She has good eye contact, was cooperative with interview and states that the only thing that currently upsets her is when she asks for soda and she does not get it. She denies passive suicidal ideation or wishes that she were not alive. No acute psychiatric complaints. No behavioral issues, no suicidal threats, no agitation, no aggression. A + O x self, hospital, 2018. Impression: 68 yo female w/ h/o HTN, CVA w/ Left sided weakness, BIB [facility] for abdominal pain and poor appetite. Patient denies current psychiatric complaints, denies depression/anxiety/psychosis/SI/HI. Patient likely has major neurocognitive impairment and likely had altered mental status upon initial psychiatric evaluation, which has now improved. Patient does not meet criteria for inpatient psychiatric admission at this time. -No 1:1 indicated -Patient is psychiatrically stable for discharge -Continue current psychiatric medications -Continue Megace for appetite Past Patient History - Past Medical History & Family History Past Medical History?: Yes - Past Social History Smoking Status: Never Smoked - CARDIAC Hx Cardiac Disorders: Yes Hx Hypertension: Yes - PULMONARY Hx Respiratory Disorders: No - NEUROLOGICAL Hx Neurological Disorder: Yes HX Cerebrovascular Accident: Yes (left hemiphlegia) - HEENT Hx HEENT Problems: No - RENAL Hx Chronic Kidney Disease: Yes - ENDOCRINE/METABOLIC Hx Endocrine Disorders: Yes Hx Diabetes Mellitus Type 2: Yes - HEMATOLOGICAL/ONCOLOGICAL Hx Blood Disorders: No Hx AIDS: No Hx Human Immunodeficiency Virus (HIV): No - INTEGUMENTARY Hx Dermatological Problems: Yes Other/Comment: healed 2 left buttocks - MUSCULOSKELETAL/RHEUMATOLOGICAL Hx Musculoskeletal Disorders: Yes Hx Falls: Yes - GASTROINTESTINAL Hx Gastrointestinal Disorders: No - GENITOURINARY/GYNECOLOGICAL Hx Genitourinary Disorders: No - PSYCHIATRIC Hx Psychophysiologic Disorder: Yes Hx Depression: Yes Hx Substance Use: No - SURGICAL HISTORY Hx Surgeries: No - ANESTHESIA Hx Anesthesia: No Hx Anesthesia Reactions: No Hx Malignant Hyperthermia: No Has any member of the family had a problem w/ anesthesia?: No Meds Allergies/Adverse Reactions: Allergies Allergy/AdvReac Type Severity Reaction Status Date / Time Penicillins Allergy RASH Verified 02/07/18 17:07 - Medications Medications: Current Medications Acetaminophen (Tylenol 325mg Tab) 650 mg PO Q4 PRN PRN Reason: Temp >100 Last Admin: 02/09/18 08:32 Dose: 650 mg Acetaminophen (Tylenol 325mg Tab) 650 mg PO Q4 PRN PRN Reason: Pain, Mild (1-3) Amlodipine Besylate (Norvasc) 5 mg PO Q12 [facility] Last Admin: 02/14/18 09:38 Dose: 5 mg Aripiprazole (Abilify) 5 mg PO DAILY [facility] Last Admin: 02/14/18 09:38 Dose: 5 mg Atorvastatin Calcium (Lipitor) 80 mg PO HS [facility] Last Admin: 02/13/18 21:36 Dose: 80 mg Bismuth Subsalicylate (Pepto-Bismol) 524 mg PO Q3H PRN PRN Reason: Diarrhea Last Admin: 02/13/18 21:38 Dose: 524 mg Colchicine (Colocrys) 0.6 mg PO DAILY [facility] Last Admin: 02/14/18 09:35 Dose: 0.6 mg Cyproheptadine HCl (Periactin) 4 mg PO BID [facility] Last Admin: 02/14/18 09:35 Dose: 4 mg Enalaprilat (Vasotec Iv) 1.25 mg IV Q6 PRN PRN Reason: Hypertension Last Admin: 02/12/18 22:11 Dose: 1.25 mg Heparin Sodium (Porcine) (Heparin) 5,000 units SC Q8 [facility]; Protocol Last Admin: 02/14/18 09:42 Dose: 5,000 units Hydralazine HCl (Apresoline) 25 mg PO Q12 [facility] Last Admin: 02/14/18 09:38 Dose: 25 mg Potassium Chloride/Dextrose/Sod Cl (Potassium Chl 20 Meq In D5-Ns) 1,000 mls @ 80 mls/hr IV .[id number] [facility] Stop: 02/14/18 23:34 Last Admin: 02/14/18 00:27 Dose: 80 mls/hr Megestrol Acetate (Megace) 400 mg PO BID [facility] Last Admin: 02/14/18 09:40 Dose: 400 mg Metoprolol Succinate (Toprol Xl) 50 mg PO Q12 [facility] Mirtazapine (Remeron) 15 mg PO HS [facility] Last Admin: 02/13/18 21:36 Dose: 15 mg Ondansetron HCl (Zofran Inj) 4 mg IVP Q6 PRN PRN Reason: Nausea/Vomiting Last Admin: 02/13/18 20:05 Dose: 4 mg Pantoprazole Sodium (Protonix Inj) 40 mg IVP DAILY [facility] Last Admin: 02/14/18 09:42 Dose: 40 mg Potassium Chloride (Potassium Chloride Oral Soln) 40 meq PO DAILY [facility] Last Admin: 02/14/18 09:40 Dose: 40 meq Sertraline HCl (Zoloft) 50 mg PO DAILY [facility] Last Admin: 02/14/18 09:39 Dose: 50 mg Results - Vital Signs Recent Vital Signs: Last Vital Signs Temp 98.4 F 02/14/18 08:04 Pulse 103 H 02/14/18 09:38 Resp 20 02/14/18 08:04 BP 118/75 02/14/18 09:38 Pulse Ox 100 02/14/18 08:04 - Labs Result Diagrams: 02/14/18 06:40 02/14/18 06:40 Labs: Laboratory Results - last 24 hr 02/13/18 02/13/18 02/13/18 13:30 16:10 21:36 WBC RBC Hgb Hct MCV MCH MCHC RDW Plt Count Sodium Potassium Chloride Carbon Dioxide Anion Gap BUN Creatinine Est GFR ( Amer) Est GFR (Non-Af Amer) POC Glucose (mg/dL) 139 H 142 H Random Glucose Calcium Phosphorus Magnesium Total Bilirubin AST ALT Alkaline Phosphatase Total Protein Albumin Globulin Albumin/Globulin Ratio C. difficile Ag & Toxin Negative 02/14/18 02/14/18 02/14/18 06:01 06:40 06:40 WBC 7.8 RBC 3.80 Hgb 11.8 L Hct 36.5 MCV 95.9 D MCH 31.0 MCHC 32.3 L RDW 18.2 H Plt Count 244 Sodium 147 Potassium 3.5 L Chloride 126 H Carbon Dioxide 13 L Anion Gap 12 BUN 18 H Creatinine 1.2 Est GFR ( Amer) 54 Est GFR (Non-Af Amer) 45 POC Glucose (mg/dL) 173 H Random Glucose 162 H Calcium 8.6 Phosphorus 2.9 Magnesium 1.3 L Total Bilirubin 0.5 AST 32 ALT 27 Alkaline Phosphatase 106 Total Protein 5.0 L Albumin 2.2 L Globulin 2.8 Albumin/Globulin Ratio 0.8 L C. difficile Ag & Toxin 02/14/18 11:03 WBC RBC Hgb Hct MCV MCH MCHC RDW Plt Count Sodium Potassium Chloride Carbon Dioxide Anion Gap BUN Creatinine Est GFR ( Amer) Est GFR (Non-Af Amer) POC Glucose (mg/dL) 242 H Random Glucose Calcium Phosphorus Magnesium Total Bilirubin AST ALT Alkaline Phosphatase Total Protein Albumin Globulin Albumin/Globulin Ratio C. difficile Ag & Toxin
[2018-02-14] MEDS: Metoprolol Succinate 50 mg XL Tab PO SCH ×3 (13:43→22:21)
--- NOTE | 2018-02-14 15:15 | RAD ---
Date of service: 02/14/2018 PROCEDURE: Radiographs of the chest and abdomen (obstructive series) HISTORY: Vomiting COMPARISON: Chest radiograph and CT scan of the abdomen pelvis dated 02/07/2018. TECHNIQUE: AP radiograph of the chest, with upright and supine radiographs of the abdomen. FINDINGS: CHEST: Lungs: Clear. Cardiovascular: Aortic atherosclerotic calcifications. Cardiomediastinal silhouette stably prominent. Pleura: No pleural fluid. No pneumothorax. Other findings: None. ABDOMEN AND PELVIS: Bowel: New gastrostomy tube in the left upper quadrant. Development of borderline dilated small bowel loops measuring 3.0 cm. Retained enteric contrast seen in the rectosigmoid. Free air: None. Bones: Degenerative changes. Other findings: None. IMPRESSION: New gastrostomy tube. Interval development of borderline dilated small bowel loops with oral contrast seen in the rectosigmoid. Findings may represent ileus versus obstruction. Clinical correlation is recommended.
--- NOTE | 2018-02-15 07:27 | CP.PCM.PN ---
<Dayron Webster - Last Filed: 02/15/18 18:53> Subjective - Date & Time of Evaluation Date of Evaluation: 02/15/18 Time of Evaluation: 07:20 - Subjective Subjective: 68 y/o f was seen and examined by bedside with Dr Conn. Pt complains of nausea and reports having one big dark yellow vomiting episode last night. Pt had several vomiting episodes last afternoon that seemed to be cause with bolus administration through PEG. Pt afebrile overnight. Objective - Vital Signs/Intake and Output Vital Signs (last 24 hours): Temp Pulse Resp BP Pulse Ox 97.3 F L 101 H 18 112/72 99 02/15/18 00:07 02/15/18 00:07 02/15/18 00:07 02/15/18 00:07 02/15/18 00:07 - Medications Medications: Current Medications Acetaminophen (Tylenol 325mg Tab) 650 mg PO Q4 PRN PRN Reason: Temp >100 Last Admin: 02/09/18 08:32 Dose: 650 mg Acetaminophen (Tylenol 325mg Tab) 650 mg PO Q4 PRN PRN Reason: Pain, Mild (1-3) Amlodipine Besylate (Norvasc) 5 mg PO Q12 [facility] Last Admin: 02/14/18 21:54 Dose: 5 mg Aripiprazole (Abilify) 5 mg PO DAILY [facility] Last Admin: 02/14/18 09:38 Dose: 5 mg Atorvastatin Calcium (Lipitor) 80 mg PO HS [facility] Last Admin: 02/14/18 21:53 Dose: 80 mg Bismuth Subsalicylate (Pepto-Bismol) 524 mg PO Q3H PRN PRN Reason: Diarrhea Last Admin: 02/13/18 21:38 Dose: 524 mg Colchicine (Colocrys) 0.6 mg PO DAILY [facility] Last Admin: 02/14/18 09:35 Dose: 0.6 mg Cyproheptadine HCl (Periactin) 4 mg PO BID [facility] Last Admin: 02/14/18 17:44 Dose: 4 mg Enalaprilat (Vasotec Iv) 1.25 mg IV Q6 PRN PRN Reason: Hypertension Last Admin: 02/12/18 22:11 Dose: 1.25 mg Heparin Sodium (Porcine) (Heparin) 5,000 units SC Q8 [facility]; Protocol Last Admin: 02/15/18 06:00 Dose: Not Given Hydralazine HCl (Apresoline) 25 mg PO Q12 [facility] Last Admin: 02/14/18 21:54 Dose: 25 mg Megestrol Acetate (Megace) 400 mg PO BID [facility] Last Admin: 02/14/18 17:44 Dose: 400 mg Metoprolol Succinate (Toprol Xl) 50 mg PO Q12 [facility] Last Admin: 02/14/18 22:21 Dose: 50 mg Mirtazapine (Remeron) 15 mg PO HS [facility] Last Admin: 02/14/18 21:55 Dose: 15 mg Ondansetron HCl (Zofran Inj) 4 mg IVP Q6 PRN PRN Reason: Nausea/Vomiting Last Admin: 02/15/18 06:04 Dose: 4 mg Pantoprazole Sodium (Protonix Inj) 40 mg IVP DAILY [facility] Last Admin: 02/14/18 09:42 Dose: 40 mg Potassium Chloride (Potassium Chloride Oral Soln) 40 meq PO DAILY [facility] Last Admin: 02/14/18 09:40 Dose: 40 meq Sertraline HCl (Zoloft) 50 mg PO DAILY [facility] Last Admin: 02/14/18 09:39 Dose: 50 mg - Labs Labs: 02/14/18 06:40 02/14/18 06:40 PT 13.0 Seconds (9.8-13.1) 02/13/18 06:20 INR 1.1 02/13/18 06:20 APTT 32.1 Seconds (25.6-37.1) 02/08/18 06:05 - Constitutional Appears: No Acute Distress - Head Exam Head Exam: ATRAUMATIC, NORMAL INSPECTION - Eye Exam Eye Exam: EOMI - ENT Exam ENT Exam: Mucous Membranes Dry - Neck Exam Neck Exam: Full ROM. absent: Meningismus - Respiratory Exam Respiratory Exam: NORMAL BREATHING PATTERN. absent: Rales, Rhonchi, Wheezes - Cardiovascular Exam Cardiovascular Exam: REGULAR RHYTHM, +S1, +S2 - GI/Abdominal Exam GI & Abdominal Exam: Soft, Tenderness (over epigastric area. ). absent: Distended, Guarding, Rigid Additional comments: Elastic support in place. - Extremities Exam Extremities Exam: absent: Calf Tenderness - Neurological Exam Neurological Exam: Alert, Awake Assessment and Plan - Assessment and Plan (Free Text) Assessment: 68 y/o F with a PMHx of CVA, HTN, DM2, and CKD admitted due to abdominal pain, loss of appetite and depression/SI. --XR obstructive series: borderline dilated small bowel loops with oral contrast in rectosigmoid, possibly ileus vs obstruction. --PEG placed yesterday. PLAN: --Afebrile, nausea and vomiting today --PO Zofran PRN --GI consulted, will appreciate input. --Will reach General Surgery team for evaluation of possible GI obstruction. --Cleared by Psych for discharge --Psych meds adjusted --Rest of plan as ordered Case discussed with Dr Conn. <Thad Conn - Last Filed: 02/16/18 15:46> Objective - Vital Signs/Intake and Output Vital Signs (last 24 hours): Temp Pulse Resp BP Pulse Ox 98.2 F 97 H 19 107/72 100 02/16/18 09:00 02/16/18 09:21 02/16/18 09:00 02/16/18 09:21 02/16/18 09:00 - Medications Medications: Current Medications Acetaminophen (Tylenol 325mg Tab) 650 mg PO Q4 PRN PRN Reason: Temp >100 Last Admin: 02/09/18 08:32 Dose: 650 mg Acetaminophen (Tylenol 325mg Tab) 650 mg PO Q4 PRN PRN Reason: Pain, Mild (1-3) Amlodipine Besylate (Norvasc) 5 mg PO Q12 [facility] Last Admin: 02/16/18 09:20 Dose: 5 mg Aripiprazole (Abilify) 5 mg PO DAILY [facility] Last Admin: 02/16/18 09:21 Dose: 5 mg Atorvastatin Calcium (Lipitor) 80 mg PO HS [facility] Last Admin: 02/15/18 23:06 Dose: 80 mg Bismuth Subsalicylate (Pepto-Bismol) 524 mg PO Q3H PRN PRN Reason: Diarrhea Last Admin: 02/13/18 21:38 Dose: 524 mg Colchicine (Colocrys) 0.6 mg PO DAILY [facility] Last Admin: 02/16/18 09:20 Dose: 0.6 mg Cyproheptadine HCl (Periactin) 4 mg PO BID [facility] Last Admin: 02/16/18 09:20 Dose: 4 mg Enalaprilat (Vasotec Iv) 1.25 mg IV Q6 PRN PRN Reason: Hypertension Last Admin: 02/12/18 22:11 Dose: 1.25 mg Heparin Sodium (Porcine) (Heparin) 5,000 units SC Q8 [facility]; Protocol Last Admin: 02/16/18 09:19 Dose: 5,000 units Hydralazine HCl (Apresoline) 25 mg PO Q12 [facility] Last Admin: 02/16/18 09:21 Dose: 25 mg Insulin Human Regular (Humulin R) 0 units SC ACHS [facility]; Protocol Last Admin: 02/16/18 13:08 Dose: 4 units Magnesium Oxide (Mag-Ox) 400 mg PO BID [facility] Last Admin: 02/16/18 09:20 Dose: 400 mg Megestrol Acetate (Megace) 400 mg PO BID [facility] Last Admin: 02/16/18 09:19 Dose: 400 mg Metoprolol Succinate (Toprol Xl) 50 mg PO Q12 [facility] Last Admin: 02/16/18 09:45 Dose: Not Given Mirtazapine (Remeron) 15 mg PO HS [facility] Last Admin: 02/15/18 23:06 Dose: 15 mg Nystatin (Nystop Topical Powder) 1 applic TOP TID [facility] Last Admin: 02/16/18 13:09 Dose: 1 applic Ondansetron HCl (Zofran Inj) 4 mg IVP Q6 PRN PRN Reason: Nausea/Vomiting Last Admin: 02/15/18 06:04 Dose: 4 mg Pantoprazole Sodium (Protonix Inj) 40 mg IVP DAILY [facility] Last Admin: 02/16/18 09:18 Dose: 40 mg Potassium Chloride (Potassium Chloride Oral Soln) 40 meq PO DAILY [facility] Last Admin: 02/16/18 09:19 Dose: 40 meq Sertraline HCl (Zoloft) 50 mg PO DAILY [facility] Last Admin: 02/16/18 09:20 Dose: 50 mg - Labs Labs: 02/14/18 06:40 02/14/18 06:40 PT 13.0 Seconds (9.8-13.1) 02/13/18 06:20 INR 1.1 02/13/18 06:20 APTT 32.1 Seconds (25.6-37.1) 02/08/18 06:05 Assessment and Plan - Assessment and Plan (Free Text) Assessment: Patient was personally seen and examined by me in rounds with residents. Available labs and diagnostic data reviewed. Case, Patient's condition and management plan discussed with residents in rounds. Agree with resident's progress note. Plan: As ordered.
--- NOTE | 2018-02-15 09:00 | CP.PCM.PN ---
Subjective - Date & Time of Evaluation Date of Evaluation: 02/14/18 Time of Evaluation: 16:00 - Subjective Subjective: no overnight events Objective - Vital Signs/Intake and Output Vital Signs (last 24 hours): Temp Pulse Resp BP Pulse Ox 97.1 F L 86 20 110/75 99 02/15/18 08:30 02/15/18 08:30 02/15/18 08:30 02/15/18 08:30 02/15/18 08:30 - Medications Medications: Current Medications Acetaminophen (Tylenol 325mg Tab) 650 mg PO Q4 PRN PRN Reason: Temp >100 Last Admin: 02/09/18 08:32 Dose: 650 mg Acetaminophen (Tylenol 325mg Tab) 650 mg PO Q4 PRN PRN Reason: Pain, Mild (1-3) Amlodipine Besylate (Norvasc) 5 mg PO Q12 [facility] Last Admin: 02/14/18 21:54 Dose: 5 mg Aripiprazole (Abilify) 5 mg PO DAILY [facility] Last Admin: 02/14/18 09:38 Dose: 5 mg Atorvastatin Calcium (Lipitor) 80 mg PO HS [facility] Last Admin: 02/14/18 21:53 Dose: 80 mg Bismuth Subsalicylate (Pepto-Bismol) 524 mg PO Q3H PRN PRN Reason: Diarrhea Last Admin: 02/13/18 21:38 Dose: 524 mg Colchicine (Colocrys) 0.6 mg PO DAILY [facility] Last Admin: 02/14/18 09:35 Dose: 0.6 mg Cyproheptadine HCl (Periactin) 4 mg PO BID [facility] Last Admin: 02/14/18 17:44 Dose: 4 mg Enalaprilat (Vasotec Iv) 1.25 mg IV Q6 PRN PRN Reason: Hypertension Last Admin: 02/12/18 22:11 Dose: 1.25 mg Heparin Sodium (Porcine) (Heparin) 5,000 units SC Q8 [facility]; Protocol Last Admin: 02/15/18 06:00 Dose: Not Given Hydralazine HCl (Apresoline) 25 mg PO Q12 [facility] Last Admin: 02/14/18 21:54 Dose: 25 mg Megestrol Acetate (Megace) 400 mg PO BID [facility] Last Admin: 02/14/18 17:44 Dose: 400 mg Metoprolol Succinate (Toprol Xl) 50 mg PO Q12 [facility] Last Admin: 02/14/18 22:21 Dose: 50 mg Mirtazapine (Remeron) 15 mg PO HS [facility] Last Admin: 02/14/18 21:55 Dose: 15 mg Ondansetron HCl (Zofran Inj) 4 mg IVP Q6 PRN PRN Reason: Nausea/Vomiting Last Admin: 02/15/18 06:04 Dose: 4 mg Pantoprazole Sodium (Protonix Inj) 40 mg IVP DAILY [facility] Last Admin: 02/14/18 09:42 Dose: 40 mg Potassium Chloride (Potassium Chloride Oral Soln) 40 meq PO DAILY [facility] Last Admin: 02/14/18 09:40 Dose: 40 meq Sertraline HCl (Zoloft) 50 mg PO DAILY [facility] Last Admin: 02/14/18 09:39 Dose: 50 mg - Labs Labs: 02/14/18 06:40 02/14/18 06:40 PT 13.0 Seconds (9.8-13.1) 02/13/18 06:20 INR 1.1 02/13/18 06:20 APTT 32.1 Seconds (25.6-37.1) 02/08/18 06:05 - Head Exam Head Exam: NORMOCEPHALIC - Neck Exam Neck Exam: Normal Inspection - Respiratory Exam Respiratory Exam: Clear to Ausculation Bilateral, NORMAL BREATHING PATTERN - Cardiovascular Exam Cardiovascular Exam: REGULAR RHYTHM - GI/Abdominal Exam GI & Abdominal Exam: Soft, Normal Bowel Sounds Assessment and Plan - Assessment and Plan (Free Text) Assessment: 68 yo female with FTT doing well post PEG increase rate to goal
--- NOTE | 2018-02-15 09:49 | CP.PCM.PN ---
Subjective - Date & Time of Evaluation Date of Evaluation: 02/15/18 Time of Evaluation: 09:48 - Subjective Subjective: no overnight events Objective - Vital Signs/Intake and Output Vital Signs (last 24 hours): Temp Pulse Resp BP Pulse Ox 97.1 F L 86 20 110/75 99 02/15/18 08:30 02/15/18 08:30 02/15/18 08:30 02/15/18 08:30 02/15/18 08:30 - Medications Medications: Current Medications Acetaminophen (Tylenol 325mg Tab) 650 mg PO Q4 PRN PRN Reason: Temp >100 Last Admin: 02/09/18 08:32 Dose: 650 mg Acetaminophen (Tylenol 325mg Tab) 650 mg PO Q4 PRN PRN Reason: Pain, Mild (1-3) Amlodipine Besylate (Norvasc) 5 mg PO Q12 [facility] Last Admin: 02/14/18 21:54 Dose: 5 mg Aripiprazole (Abilify) 5 mg PO DAILY [facility] Last Admin: 02/14/18 09:38 Dose: 5 mg Atorvastatin Calcium (Lipitor) 80 mg PO HS [facility] Last Admin: 02/14/18 21:53 Dose: 80 mg Bismuth Subsalicylate (Pepto-Bismol) 524 mg PO Q3H PRN PRN Reason: Diarrhea Last Admin: 02/13/18 21:38 Dose: 524 mg Colchicine (Colocrys) 0.6 mg PO DAILY [facility] Last Admin: 02/14/18 09:35 Dose: 0.6 mg Cyproheptadine HCl (Periactin) 4 mg PO BID [facility] Last Admin: 02/14/18 17:44 Dose: 4 mg Enalaprilat (Vasotec Iv) 1.25 mg IV Q6 PRN PRN Reason: Hypertension Last Admin: 02/12/18 22:11 Dose: 1.25 mg Heparin Sodium (Porcine) (Heparin) 5,000 units SC Q8 [facility]; Protocol Last Admin: 02/15/18 06:00 Dose: Not Given Hydralazine HCl (Apresoline) 25 mg PO Q12 [facility] Last Admin: 02/14/18 21:54 Dose: 25 mg Megestrol Acetate (Megace) 400 mg PO BID [facility] Last Admin: 02/14/18 17:44 Dose: 400 mg Metoprolol Succinate (Toprol Xl) 50 mg PO Q12 [facility] Last Admin: 02/14/18 22:21 Dose: 50 mg Mirtazapine (Remeron) 15 mg PO HS [facility] Last Admin: 02/14/18 21:55 Dose: 15 mg Ondansetron HCl (Zofran Inj) 4 mg IVP Q6 PRN PRN Reason: Nausea/Vomiting Last Admin: 02/15/18 06:04 Dose: 4 mg Pantoprazole Sodium (Protonix Inj) 40 mg IVP DAILY [facility] Last Admin: 02/14/18 09:42 Dose: 40 mg Potassium Chloride (Potassium Chloride Oral Soln) 40 meq PO DAILY [facility] Last Admin: 02/14/18 09:40 Dose: 40 meq Sertraline HCl (Zoloft) 50 mg PO DAILY [facility] Last Admin: 02/14/18 09:39 Dose: 50 mg - Labs Labs: 02/14/18 06:40 02/14/18 06:40 PT 13.0 Seconds (9.8-13.1) 02/13/18 06:20 INR 1.1 02/13/18 06:20 APTT 32.1 Seconds (25.6-37.1) 02/08/18 06:05 - Head Exam Head Exam: NORMOCEPHALIC - Neck Exam Neck Exam: Normal Inspection - Respiratory Exam Respiratory Exam: Clear to Ausculation Bilateral, NORMAL BREATHING PATTERN - Cardiovascular Exam Cardiovascular Exam: REGULAR RHYTHM - GI/Abdominal Exam GI & Abdominal Exam: Soft, Normal Bowel Sounds Assessment and Plan - Assessment and Plan (Free Text) Assessment: 68 yo female with FTT doing well with peg placement?
[2018-02-15] MEDS: Megestrol Acetate 40 mg/ml Cup PO SCH ×2 (09:52→16:01)
[2018-02-15] MEDS: Metoprolol Succinate 50 mg XL Tab PO SCH ×2 (10:02→22:07)
[2018-02-15] MEDS: Potassium Chloride 20 mEq/15 ml LIQ UD PO SCH (10:04)
--- NOTE | 2018-02-15 12:09 | CP.PCM.PN ---
<Niraj Kaufman - Last Filed: 02/15/18 12:13> Subjective - Date & Time of Evaluation Date of Evaluation: 02/15/18 Time of Evaluation: 12:06 - Subjective Subjective: Surgery: Dr. Turcios 68F POD#2 PEG, not tolerating bolus feeds with dilated loops on AXR. Pt does not have any complaints at time of exam. Objective - Vital Signs/Intake and Output Vital Signs (last 24 hours): Temp Pulse Resp BP Pulse Ox 97.1 F L 86 20 110/75 99 02/15/18 08:30 02/15/18 10:03 02/15/18 08:30 02/15/18 10:03 02/15/18 08:30 - Medications Medications: Current Medications Acetaminophen (Tylenol 325mg Tab) 650 mg PO Q4 PRN PRN Reason: Temp >100 Last Admin: 02/09/18 08:32 Dose: 650 mg Acetaminophen (Tylenol 325mg Tab) 650 mg PO Q4 PRN PRN Reason: Pain, Mild (1-3) Amlodipine Besylate (Norvasc) 5 mg PO Q12 [facility] Last Admin: 02/15/18 10:03 Dose: 5 mg Aripiprazole (Abilify) 5 mg PO DAILY [facility] Last Admin: 02/15/18 10:04 Dose: 5 mg Atorvastatin Calcium (Lipitor) 80 mg PO HS [facility] Last Admin: 02/14/18 21:53 Dose: 80 mg Bismuth Subsalicylate (Pepto-Bismol) 524 mg PO Q3H PRN PRN Reason: Diarrhea Last Admin: 02/13/18 21:38 Dose: 524 mg Colchicine (Colocrys) 0.6 mg PO DAILY [facility] Last Admin: 02/15/18 10:03 Dose: 0.6 mg Cyproheptadine HCl (Periactin) 4 mg PO BID [facility] Last Admin: 02/15/18 10:05 Dose: 4 mg Enalaprilat (Vasotec Iv) 1.25 mg IV Q6 PRN PRN Reason: Hypertension Last Admin: 02/12/18 22:11 Dose: 1.25 mg Heparin Sodium (Porcine) (Heparin) 5,000 units SC Q8 [facility]; Protocol Last Admin: 02/15/18 10:03 Dose: 5,000 units Hydralazine HCl (Apresoline) 25 mg PO Q12 [facility] Last Admin: 02/15/18 09:52 Dose: 25 mg Megestrol Acetate (Megace) 400 mg PO BID [facility] Last Admin: 02/15/18 09:52 Dose: 400 mg Metoprolol Succinate (Toprol Xl) 50 mg PO Q12 [facility] Last Admin: 02/15/18 10:02 Dose: 50 mg Mirtazapine (Remeron) 15 mg PO HS [facility] Last Admin: 02/14/18 21:55 Dose: 15 mg Ondansetron HCl (Zofran Inj) 4 mg IVP Q6 PRN PRN Reason: Nausea/Vomiting Last Admin: 02/15/18 06:04 Dose: 4 mg Pantoprazole Sodium (Protonix Inj) 40 mg IVP DAILY [facility] Last Admin: 02/15/18 10:05 Dose: 40 mg Potassium Chloride (Potassium Chloride Oral Soln) 40 meq PO DAILY [facility] Last Admin: 02/15/18 10:04 Dose: 40 meq Sertraline HCl (Zoloft) 50 mg PO DAILY [facility] Last Admin: 02/15/18 10:04 Dose: 50 mg - Labs Labs: 02/14/18 06:40 02/14/18 06:40 PT 13.0 Seconds (9.8-13.1) 02/13/18 06:20 INR 1.1 02/13/18 06:20 APTT 32.1 Seconds (25.6-37.1) 02/08/18 06:05 - Constitutional Appears: Non-toxic, No Acute Distress, Unkempt - Head Exam Head Exam: ATRAUMATIC, NORMOCEPHALIC - Eye Exam Eye Exam: EOMI - ENT Exam ENT Exam: Mucous Membranes Moist - Neck Exam Neck Exam: Full ROM - Respiratory Exam Respiratory Exam: NORMAL BREATHING PATTERN. absent: Accessory Muscle Use, Respiratory Distress - Cardiovascular Exam Cardiovascular Exam: REGULAR RHYTHM - GI/Abdominal Exam GI & Abdominal Exam: Soft. absent: Distended, Firm, Guarding, Rigid, Tenderness, Rebound Additional comments: PEG in place - Extremities Exam Extremities Exam: absent: Calf Tenderness, Pedal Edema - Neurological Exam Neurological Exam: Alert, Awake - Psychiatric Exam Psychiatric exam: Normal Affect, Normal Mood - Skin Skin Exam: Dry, Normal Color, Warm Assessment and Plan - Assessment and Plan (Free Text) Assessment: 68F POD#2 PEG, not tolerating bolus feeds -AXR noted -Recommend continuous feeds starting at 10cc/hr increase 10cc every hour until target goal is reached -Recommend checking for residuals every 4 hours, hold feeds if residuals >250cc/hr -will follow -d/w attending Mandeep PGY4 <Regis Turcios - Last Filed: 02/18/18 17:14> Objective - Vital Signs/Intake and Output Vital Signs (last 24 hours): Temp Pulse Resp BP Pulse Ox 98.2 F 97 H 19 107/72 100 02/16/18 09:00 02/16/18 09:21 02/16/18 09:00 02/16/18 09:21 02/16/18 09:00 - Labs Labs: 02/14/18 06:40 02/14/18 06:40 PT 13.0 Seconds (9.8-13.1) 02/13/18 06:20 INR 1.1 02/13/18 06:20 APTT 32.1 Seconds (25.6-37.1) 02/08/18 06:05 Attending/Attestation - Attestation I have personally seen and examined this patient.: Yes I have fully participated in the care of the patient.: Yes I have reviewed all pertinent clinical information, including history, physical exam and plan: Yes Notes (Text): Pt was seen and examined at bedside Agree with above note and assessment Pt ileus s/p PEG placement Slowly start tube feeds Fleet enema if necessary c.w current mx Plan d.w pt in detail.
[2018-02-15] MEDS: Magnesium Oxide 400 mg Tab UD PO SCH ×2 (16:04→21:05)
[2018-02-15] MEDS: Insulin Regular 100 units/ml SC SCH ×2 (16:27→22:16)
--- NOTE | 2018-02-16 07:18 | CP.PCM.PN ---
Subjective - Date & Time of Evaluation Date of Evaluation: 02/16/18 Time of Evaluation: :18 Objective - Vital Signs/Intake and Output Vital Signs (last 24 hours): Temp Pulse Resp BP Pulse Ox 98 F 94 H 20 104/70 95 02/16/18 00:40 02/16/18 00:40 02/16/18 00:40 02/16/18 00:40 02/16/18 00:40 - Medications Medications: Current Medications Acetaminophen (Tylenol 325mg Tab) 650 mg PO Q4 PRN PRN Reason: Temp >100 Last Admin: 02/09/18 08:32 Dose: 650 mg Acetaminophen (Tylenol 325mg Tab) 650 mg PO Q4 PRN PRN Reason: Pain, Mild (1-3) Amlodipine Besylate (Norvasc) 5 mg PO Q12 [facility] Last Admin: 02/15/18 22:06 Dose: Not Given Aripiprazole (Abilify) 5 mg PO DAILY [facility] Last Admin: 02/15/18 10:04 Dose: 5 mg Atorvastatin Calcium (Lipitor) 80 mg PO HS [facility] Last Admin: 02/15/18 23:06 Dose: 80 mg Bismuth Subsalicylate (Pepto-Bismol) 524 mg PO Q3H PRN PRN Reason: Diarrhea Last Admin: 02/13/18 21:38 Dose: 524 mg Colchicine (Colocrys) 0.6 mg PO DAILY [facility] Last Admin: 02/15/18 10:03 Dose: 0.6 mg Cyproheptadine HCl (Periactin) 4 mg PO BID [facility] Last Admin: 02/15/18 16:01 Dose: 4 mg Enalaprilat (Vasotec Iv) 1.25 mg IV Q6 PRN PRN Reason: Hypertension Last Admin: 02/12/18 22:11 Dose: 1.25 mg Heparin Sodium (Porcine) (Heparin) 5,000 units SC Q8 [facility]; Protocol Last Admin: 02/16/18 00:05 Dose: 5,000 units Hydralazine HCl (Apresoline) 25 mg PO Q12 [facility] Last Admin: 02/15/18 22:04 Dose: Not Given Insulin Human Regular (Humulin R) 0 units SC [facility]; Protocol Last Admin: 02/15/18 22:16 Dose: Not Given Magnesium Oxide (Mag-Ox) 400 mg PO BID [facility] Last Admin: 02/15/18 21:05 Dose: Not Given Megestrol Acetate (Megace) 400 mg PO BID [facility] Last Admin: 02/15/18 16:01 Dose: 400 mg Metoprolol Succinate (Toprol Xl) 50 mg PO Q12 [facility] Last Admin: 02/15/18 22:07 Dose: Not Given Mirtazapine (Remeron) 15 mg PO HS [facility] Last Admin: 02/15/18 23:06 Dose: 15 mg Nystatin (Nystop Topical Powder) 1 applic TOP TID [facility] Last Admin: 02/15/18 16:03 Dose: 1 applic Ondansetron HCl (Zofran Inj) 4 mg IVP Q6 PRN PRN Reason: Nausea/Vomiting Last Admin: 02/15/18 06:04 Dose: 4 mg Pantoprazole Sodium (Protonix Inj) 40 mg IVP DAILY [facility] Last Admin: 02/15/18 10:05 Dose: 40 mg Potassium Chloride (Potassium Chloride Oral Soln) 40 meq PO DAILY [facility] Last Admin: 02/15/18 10:04 Dose: 40 meq Sertraline HCl (Zoloft) 50 mg PO DAILY [facility] Last Admin: 02/15/18 10:04 Dose: 50 mg - Labs Labs: 02/14/18 06:40 02/14/18 06:40 PT 13.0 Seconds (9.8-13.1) 02/13/18 06:20 INR 1.1 02/13/18 06:20 APTT 32.1 Seconds (25.6-37.1) 02/08/18 06:05
--- NOTE | 2018-02-16 07:58 | CP.PCM.PN ---
<DelNishantmone - Last Filed: 02/16/18 07:56> Subjective - Date & Time of Evaluation Date of Evaluation: 02/16/18 Time of Evaluation: 07:56 - Subjective Subjective: Surgery Pt seen and examined. Per nurse having BM. Denies fever, CP, SOB. Had an episode of vomiting yesterday. Getting tube feeds via PEG Objective - Vital Signs/Intake and Output Vital Signs (last 24 hours): Temp Pulse Resp BP Pulse Ox 98 F 94 H 20 104/70 95 02/16/18 00:40 02/16/18 00:40 02/16/18 00:40 02/16/18 00:40 02/16/18 00:40 - Medications Medications: Current Medications Acetaminophen (Tylenol 325mg Tab) 650 mg PO Q4 PRN PRN Reason: Temp >100 Last Admin: 02/09/18 08:32 Dose: 650 mg Acetaminophen (Tylenol 325mg Tab) 650 mg PO Q4 PRN PRN Reason: Pain, Mild (1-3) Amlodipine Besylate (Norvasc) 5 mg PO Q12 [facility] Last Admin: 02/15/18 22:06 Dose: Not Given Aripiprazole (Abilify) 5 mg PO DAILY [facility] Last Admin: 02/15/18 10:04 Dose: 5 mg Atorvastatin Calcium (Lipitor) 80 mg PO HS [facility] Last Admin: 02/15/18 23:06 Dose: 80 mg Bismuth Subsalicylate (Pepto-Bismol) 524 mg PO Q3H PRN PRN Reason: Diarrhea Last Admin: 02/13/18 21:38 Dose: 524 mg Colchicine (Colocrys) 0.6 mg PO DAILY [facility] Last Admin: 02/15/18 10:03 Dose: 0.6 mg Cyproheptadine HCl (Periactin) 4 mg PO BID [facility] Last Admin: 02/15/18 16:01 Dose: 4 mg Enalaprilat (Vasotec Iv) 1.25 mg IV Q6 PRN PRN Reason: Hypertension Last Admin: 02/12/18 22:11 Dose: 1.25 mg Heparin Sodium (Porcine) (Heparin) 5,000 units SC Q8 [facility]; Protocol Last Admin: 02/16/18 00:05 Dose: 5,000 units Hydralazine HCl (Apresoline) 25 mg PO Q12 [facility] Last Admin: 02/15/18 22:04 Dose: Not Given Insulin Human Regular (Humulin R) 0 units SC ACHS [facility]; Protocol Last Admin: 02/15/18 22:16 Dose: Not Given Magnesium Oxide (Mag-Ox) 400 mg PO BID [facility] Last Admin: 02/15/18 21:05 Dose: Not Given Megestrol Acetate (Megace) 400 mg PO BID [facility] Last Admin: 02/15/18 16:01 Dose: 400 mg Metoprolol Succinate (Toprol Xl) 50 mg PO Q12 [facility] Last Admin: 02/15/18 22:07 Dose: Not Given Mirtazapine (Remeron) 15 mg PO HS [facility] Last Admin: 02/15/18 23:06 Dose: 15 mg Nystatin (Nystop Topical Powder) 1 applic TOP TID [facility] Last Admin: 02/15/18 16:03 Dose: 1 applic Ondansetron HCl (Zofran Inj) 4 mg IVP Q6 PRN PRN Reason: Nausea/Vomiting Last Admin: 02/15/18 06:04 Dose: 4 mg Pantoprazole Sodium (Protonix Inj) 40 mg IVP DAILY [facility] Last Admin: 02/15/18 10:05 Dose: 40 mg Potassium Chloride (Potassium Chloride Oral Soln) 40 meq PO DAILY [facility] Last Admin: 02/15/18 10:04 Dose: 40 meq Sertraline HCl (Zoloft) 50 mg PO DAILY [facility] Last Admin: 02/15/18 10:04 Dose: 50 mg - Labs Labs: 02/14/18 06:40 02/14/18 06:40 PT 13.0 Seconds (9.8-13.1) 02/13/18 06:20 INR 1.1 02/13/18 06:20 APTT 32.1 Seconds (25.6-37.1) 02/08/18 06:05 - Constitutional Appears: No Acute Distress - Head Exam Head Exam: ATRAUMATIC, NORMAL INSPECTION, NORMOCEPHALIC - Eye Exam Eye Exam: EOMI, Normal appearance, PERRL Pupil Exam: NORMAL ACCOMODATION, PERRL - ENT Exam ENT Exam: Mucous Membranes Moist, Normal Exam - Neck Exam Neck Exam: Full ROM - Respiratory Exam Respiratory Exam: NORMAL BREATHING PATTERN - Cardiovascular Exam Cardiovascular Exam: REGULAR RHYTHM, +S1, +S2. absent: Murmur - GI/Abdominal Exam GI & Abdominal Exam: Soft. absent: Distended, Guarding, Rigid Additional comments: PEG in place. Tube feed intact. Tube feed on 40cc/hr - Neurological Exam Neurological Exam: Awake - Psychiatric Exam Psychiatric exam: Normal Affect, Normal Mood - Skin Skin Exam: Dry Assessment and Plan - Assessment and Plan (Free Text) Assessment: 68F POD#3 PEG w ileus: resolving -AXR noted -Nausea control -Recommend continuous feeds -Recommend checking for residuals every 4 hours, hold feeds if residuals >250 cc/hr -Will d/w attending <Regis Turcios - Last Filed: 02/18/18 17:12> Objective - Vital Signs/Intake and Output Vital Signs (last 24 hours): Temp Pulse Resp BP Pulse Ox 98.2 F 97 H 19 107/72 100 02/16/18 09:00 02/16/18 09:21 02/16/18 09:00 02/16/18 09:21 02/16/18 09:00 - Labs Labs: 02/14/18 06:40 02/14/18 06:40 PT 13.0 Seconds (9.8-13.1) 02/13/18 06:20 INR 1.1 02/13/18 06:20 APTT 32.1 Seconds (25.6-37.1) 02/08/18 06:05 Attending/Attestation - Attestation I have personally seen and examined this patient.: Yes I have fully participated in the care of the patient.: Yes I have reviewed all pertinent clinical information, including history, physical exam and plan: Yes Notes (Text): Pt was seen and examined at bedside Agree with above note and assessment Pt with ileus and vomiting Passing gas and BMs Toleating tube feed repeat AXR in am C.w current mx Plan d.w pt in detail.
[2018-02-16 08:05] VITALS: BP 107/72; PULSE 97; RESP 19; TEMP 98.2; O2SAT 100
[2018-02-16] MEDS: Megestrol Acetate 40 mg/ml Cup PO SCH (09:19)
[2018-02-16] MEDS: Potassium Chloride 20 mEq/15 ml LIQ UD PO SCH (09:19)
[2018-02-16] MEDS: Magnesium Oxide 400 mg Tab UD PO SCH (09:20)
[2018-02-16] MEDS: Insulin Regular 100 units/ml SC SCH ×2 (09:22→13:08)
[2018-02-16] MEDS: Metoprolol Succinate 50 mg XL Tab PO SCH (09:45)
--- NOTE | 2018-02-16 13:14 | CP.PCM.PN ---
Subjective - Date & Time of Evaluation Date of Evaluation: 02/16/18 Time of Evaluation: 13:13 - Subjective Subjective: no overnight events Objective - Vital Signs/Intake and Output Vital Signs (last 24 hours): Temp Pulse Resp BP Pulse Ox 98.2 F 97 H 19 107/72 100 02/16/18 09:00 02/16/18 09:21 02/16/18 09:00 02/16/18 09:21 02/16/18 09:00 - Medications Medications: Current Medications Acetaminophen (Tylenol 325mg Tab) 650 mg PO Q4 PRN PRN Reason: Temp >100 Last Admin: 02/09/18 08:32 Dose: 650 mg Acetaminophen (Tylenol 325mg Tab) 650 mg PO Q4 PRN PRN Reason: Pain, Mild (1-3) Amlodipine Besylate (Norvasc) 5 mg PO Q12 [facility] Last Admin: 02/16/18 09:20 Dose: 5 mg Aripiprazole (Abilify) 5 mg PO DAILY [facility] Last Admin: 02/16/18 09:21 Dose: 5 mg Atorvastatin Calcium (Lipitor) 80 mg PO HS [facility] Last Admin: 02/15/18 23:06 Dose: 80 mg Bismuth Subsalicylate (Pepto-Bismol) 524 mg PO Q3H PRN PRN Reason: Diarrhea Last Admin: 02/13/18 21:38 Dose: 524 mg Colchicine (Colocrys) 0.6 mg PO DAILY [facility] Last Admin: 02/16/18 09:20 Dose: 0.6 mg Cyproheptadine HCl (Periactin) 4 mg PO BID [facility] Last Admin: 02/16/18 09:20 Dose: 4 mg Enalaprilat (Vasotec Iv) 1.25 mg IV Q6 PRN PRN Reason: Hypertension Last Admin: 02/12/18 22:11 Dose: 1.25 mg Heparin Sodium (Porcine) (Heparin) 5,000 units SC Q8 [facility]; Protocol Last Admin: 02/16/18 09:19 Dose: 5,000 units Hydralazine HCl (Apresoline) 25 mg PO Q12 [facility] Last Admin: 02/16/18 09:21 Dose: 25 mg Insulin Human Regular (Humulin R) 0 units SC ACHS [facility]; Protocol Last Admin: 02/16/18 13:08 Dose: 4 units Magnesium Oxide (Mag-Ox) 400 mg PO BID [facility] Last Admin: 02/16/18 09:20 Dose: 400 mg Megestrol Acetate (Megace) 400 mg PO BID [facility] Last Admin: 02/16/18 09:19 Dose: 400 mg Metoprolol Succinate (Toprol Xl) 50 mg PO Q12 [facility] Last Admin: 02/16/18 09:45 Dose: Not Given Mirtazapine (Remeron) 15 mg PO HS [facility] Last Admin: 02/15/18 23:06 Dose: 15 mg Nystatin (Nystop Topical Powder) 1 applic TOP TID [facility] Last Admin: 02/16/18 13:09 Dose: 1 applic Ondansetron HCl (Zofran Inj) 4 mg IVP Q6 PRN PRN Reason: Nausea/Vomiting Last Admin: 02/15/18 06:04 Dose: 4 mg Pantoprazole Sodium (Protonix Inj) 40 mg IVP DAILY [facility] Last Admin: 02/16/18 09:18 Dose: 40 mg Potassium Chloride (Potassium Chloride Oral Soln) 40 meq PO DAILY [facility] Last Admin: 02/16/18 09:19 Dose: 40 meq Sertraline HCl (Zoloft) 50 mg PO DAILY [facility] Last Admin: 02/16/18 09:20 Dose: 50 mg - Labs Labs: 02/14/18 06:40 02/14/18 06:40 PT 13.0 Seconds (9.8-13.1) 02/13/18 06:20 INR 1.1 02/13/18 06:20 APTT 32.1 Seconds (25.6-37.1) 02/08/18 06:05 - Respiratory Exam Respiratory Exam: Clear to Ausculation Bilateral, NORMAL BREATHING PATTERN - Cardiovascular Exam Cardiovascular Exam: REGULAR RHYTHM - GI/Abdominal Exam GI & Abdominal Exam: Soft, Normal Bowel Sounds Assessment and Plan - Assessment and Plan (Free Text) Assessment: 68 yo female with FTT no GI issues PEG working well
--- NOTE | 2018-02-16 14:25 | CP.PCM.DIS ---
Addendum entered and electronically signed by Dayron Webster MD 02/16/18 14:50: Diagnosis: 1. Abdominal pain 2. Failure to thrive in adult 3. Depression, Acute Original Note: Provider - Provider Date of Admission: 02/08/18 15:00 Attending physician: Thad Conn MD Primary care physician: Michelle Thayer Consults: GI: Dr Zamudio General Surgery: Dr Turcios Psychiatry: Dr Cruz Time Spent in preparation of Discharge (in minutes): 30 Hospital Course - Lab Results Lab Results: Micro Results 02/08/18 15:49 Blood Blood Culture - Final NO GROWTH AFTER 5 DAYS 02/08/18 15:49 Blood Gram Stain - Final TEST NOT PERFORMED Most Recent Lab Values WBC 7.8 K/uL (4.8-10.8) 02/14/18 06:40 RBC 3.80 Mil/uL (3.80-5.20) 02/14/18 06:40 Hgb 11.8 g/dL (12.0-16.0) L 02/14/18 06:40 Hct 36.5 % (34.0-47.0) 02/14/18 06:40 MCV 95.9 fl (81.0-99.0) D 02/14/18 06:40 MCH 31.0 pg (27.0-31.0) 02/14/18 06:40 MCHC 32.3 g/dL (33.0-37.0) L 02/14/18 06:40 RDW 18.2 % (11.5-14.5) H 02/14/18 06:40 Plt Count 244 K/uL (130-400) 02/14/18 06:40 MPV 8.6 fl (7.2-11.7) 02/07/18 18:20 Neut % (Auto) 39.8 % (50.0-75.0) L 02/07/18 18:20 Lymph % (Auto) 47.7 % (20.0-40.0) H 02/07/18 18:20 [place] % (Auto) 10.3 % (0.0-10.0) H 02/07/18 18:20 Eos % (Auto) 0.9 % (0.0-4.0) 02/07/18 18:20 Baso % (Auto) 1.3 % (0.0-2.0) 02/07/18 18:20 Neut # (Auto) 1.9 K/uL (1.8-7.0) 02/07/18 18:20 Lymph # (Auto) 2.3 K/uL (1.0-4.3) 02/07/18 18:20 [place] # (Auto) 0.5 K/uL (0.0-0.8) 02/07/18 18:20 Eos # (Auto) 0.0 K/uL (0.0-0.7) 02/07/18 18:20 Baso # (Auto) 0.1 K/uL (0.0-0.2) 02/07/18 18:20 PT 13.0 Seconds (9.8-13.1) 02/13/18 06:20 INR 1.1 02/13/18 06:20 APTT 32.1 Seconds (25.6-37.1) 02/08/18 06:05 Sodium 147 mmol/l (132-148) 02/14/18 06:40 Potassium 3.5 MMOL/L (3.6-5.0) L 02/14/18 06:40 Chloride 126 mmol/L (98-107) H 02/14/18 06:40 Carbon Dioxide 13 mmol/L (22-30) L 02/14/18 06:40 Anion Gap 12 (10-20) 02/14/18 06:40 BUN 18 mg/dl (7-17) H 02/14/18 06:40 Creatinine 1.2 mg/dl (0.7-1.2) 02/14/18 06:40 Est GFR ( Amer) 54 02/14/18 06:40 Est GFR (Non-Af Amer) 45 02/14/18 06:40 POC Glucose (mg/dL) 314 mg/dL (65-110) H 02/16/18 11:06 Random Glucose 162 mg/dL (65-105) H 02/14/18 06:40 Calcium 8.6 mg/dL (8.4-10.2) 02/14/18 06:40 Phosphorus 2.9 mg/dl (2.5-4.5) 02/14/18 06:40 Magnesium 1.3 MG/DL (1.6-2.3) L 02/14/18 06:40 Total Bilirubin 0.5 mg/dl (0.2-1.3) 02/14/18 06:40 AST 32 U/L (14-36) 02/14/18 06:40 ALT 27 U/L (9-52) 02/14/18 06:40 Alkaline Phosphatase 106 U/L (38-126) 02/14/18 06:40 Total Protein 5.0 G/DL (6.3-8.2) L 02/14/18 06:40 Albumin 2.2 g/dL (3.5-5.0) L 02/14/18 06:40 Globulin 2.8 gm/dL (2.2-3.9) 02/14/18 06:40 Albumin/Globulin Ratio 0.8 (1.0-2.1) L 02/14/18 06:40 Lipase 753 U/L (23-300) H 02/09/18 06:15 Urine Color Yellow (YELLOW) 02/09/18 20:42 Urine Clarity Cloudy (Clear) 02/09/18 20:42 Urine pH 5.0 (5.0-8.0) 02/09/18 20:42 Ur Specific [place] 1.010 (1.003-1.030) 02/09/18 20:42 Urine Protein Negative mg/dL (NEGATIVE) 02/09/18 20:42 Urine Glucose (UA) >=500 mg/dL (Normal) 02/09/18 20:42 Urine Ketones Trace mg/dL (NEGATIVE) 02/09/18 20:42 Urine Blood Small (NEGATIVE) 02/09/18 20:42 Urine Nitrate Negative (NEGATIVE) 02/09/18 20:42 Urine Bilirubin Negative (NEGATIVE) 02/09/18 20:42 Urine Urobilinogen 0.2-1.0 mg/dL (0.2-1.0) 02/09/18 20:42 Ur Leukocyte Esterase Large Judy/uL (Negative) 02/09/18 20:42 Urine RBC (Auto) 13 /hpf (0-3) H 02/09/18 20:42 Urine Microscopic WBC 30 /hpf (0-5) H 02/09/18 20:42 Ur Squamous Epith Cells 2 /hpf (0-5) 02/09/18 20:42 Urine Bacteria Many (<OCC) H 02/09/18 20:42 Urine Yeast (Budding) Few /hpf (NEGATIVE) H 02/09/18 20:42 C. difficile Ag & Toxin Negative (NEGATIVE) 02/13/18 13:30 - Hospital Course Hospital Course: 68 y/o F with a PMHx of CVA, HTN, diabetes, and chronic kidney disease due to abdominal pain and depression. PEG was placed on 02/13/18 due to poor PO intake. Pt complained of nausea and vomiting with boluses of PEG solution. General surgery suggested continuous administration through the PEG. After this change, pt reported feeling better with NO abdominal pain, nausea or vomiting. Currently PEG administration has been optimized and maximized. Pt was also evaluated by Psychiatrist who stated that pt was psychiatrically stable for discharge. Today, pt was seen adn examined with Dr Conn by bedside. Pt afebrile, stable, with NO acute events overnight, will be discharged to longterm. - Date & Time of H&P Date of H&P: 02/08/18 Time of H&P: 08:24 Discharge Exam - Head Exam Head Exam: ATRAUMATIC, NORMAL INSPECTION, NORMOCEPHALIC - Eye Exam Eye Exam: EOMI, Normal appearance - ENT Exam ENT Exam: Mucous Membranes Dry - Neck Exam Neck exam: Full Rom - Respiratory Exam Respiratory Exam: NORMAL BREATHING PATTERN. absent: Wheezes, Respiratory Distress, Stridor - Cardiovascular Exam Cardiovascular Exam: REGULAR RHYTHM, +S1, +S2 - GI/Abdominal Exam GI & Abdominal Exam: Normal Bowel Sounds, Soft. absent: Distended, Guarding, Hernia, Tenderness Additional comments: PEG in place, clean, dry and intact. - Back Exam Back exam: absent: CVA tenderness (L), CVA tenderness (R) - Neurological Exam Neurological exam: Alert, Oriented x3 Discharge Plan - Follow Up Plan Condition: FAIR Disposition: TRANSF TO SNF Instructions: Percutaneous Endoscopic Gastrostomy (DC), Acute Abdominal Pain (DC)
== END 2018-02-16 15:30 | DRG 444 ==
LOC: H.ER 16:59 → H.ERHOLD 21:11 → H.MEDSURG1 23:28 → OBSVTOIN 02-08 15:00 → H.MEDSURG1 02-09 19:47
PROVIDERS: ADMIT Internal Medicine; ATTEND Internal Medicine
PROC: 3E0G76Z Introduction of Nutritional Substance into Upper GI, Via Natural or Artificial Opening (ICD-10-PCS; 2018-02-13)
PROC: 0DH63UZ Insertion of Feeding Device into Stomach, Percutaneous Approach (ICD-10-PCS; principal; 2018-02-13 08:30)
DX: K80.00 Calculus of gallbladder with acute cholecystitis without obstruction (principal); K85.10 Biliary acute pancreatitis without necrosis or infection; I69.354 Hemiplegia and hemiparesis following cerebral infarction affecting left non-dominant side; F33.2 Major depressive disorder, recurrent severe without psychotic features; K56.7 Ileus, unspecified; E46 Unspecified protein-calorie malnutrition; Z68.1 Body mass index [BMI] 19.9 or less, adult; R45.851 Suicidal ideations; R62.7 Adult failure to thrive; I12.9 Hypertensive chronic kidney disease with stage 1 through stage 4 chronic kidney disease, or unspecified chronic kidney disease; N18.3 Chronic kidney disease, stage 3 (moderate); E11.22 Type 2 diabetes mellitus with diabetic chronic kidney disease; Z88.0 Allergy status to penicillin